=== PATIENT | male | born 1935 | race African-American/Black ===

== ENCOUNTER 2020-05-23 11:20 | Outpatient (CLI) | payer MEDICARE, BC | END 2020-05-23 11:21 | disposition home or self-care (01) | LOC: CSHWCC 11:20 | PROVIDERS: ATTEND Nurse Practitioner Family | DX: I87.311 Chronic venous hypertension (idiopathic) with ulcer of right lower extremity (principal); E11.622 Type 2 diabetes mellitus with other skin ulcer; L97.811 Non-pressure chronic ulcer of other part of right lower leg limited to breakdown of skin; R60.0 Localized edema; E11.40 Type 2 diabetes mellitus with diabetic neuropathy, unspecified; E78.2 Mixed hyperlipidemia; G90.09 Other idiopathic peripheral autonomic neuropathy; I11.0 Hypertensive heart disease with heart failure; I25.10 Atherosclerotic heart disease of native coronary artery without angina pectoris; I50.9 Heart failure, unspecified; E11.51 Type 2 diabetes mellitus with diabetic peripheral angiopathy without gangrene; I70.203 Unspecified atherosclerosis of native arteries of extremities, bilateral legs; M1A.9XX0 Chronic gout, unspecified, without tophus (tophi); Z74.01 Bed confinement status; Z91.81 History of falling | CPT/HCPCS: 29581; 97139; G0463; 99214 ==

== ENCOUNTER 2020-06-25 10:59 | Outpatient (CLI) | payer MEDICARE, BC | END 2020-06-25 11:00 | disposition home or self-care (01) | LOC: CSHWCC 10:59 | PROVIDERS: ATTEND Nurse Practitioner Family | DX: I87.311 Chronic venous hypertension (idiopathic) with ulcer of right lower extremity (principal); L97.811 Non-pressure chronic ulcer of other part of right lower leg limited to breakdown of skin; R60.0 Localized edema; E11.40 Type 2 diabetes mellitus with diabetic neuropathy, unspecified; E78.2 Mixed hyperlipidemia; G90.09 Other idiopathic peripheral autonomic neuropathy; I25.10 Atherosclerotic heart disease of native coronary artery without angina pectoris; I11.0 Hypertensive heart disease with heart failure; I50.9 Heart failure, unspecified; I70.203 Unspecified atherosclerosis of native arteries of extremities, bilateral legs; I87.2 Venous insufficiency (chronic) (peripheral); M1A.9XX0 Chronic gout, unspecified, without tophus (tophi); Z74.01 Bed confinement status; Z91.81 History of falling | CPT/HCPCS: 29581; 97139; G0463; 99213 ==

== ENCOUNTER 2020-07-02 11:18 | Outpatient (CLI) | payer MEDICARE, BC | END 2020-07-02 11:19 | disposition home or self-care (01) | LOC: CSHWCC 11:18 | PROVIDERS: ATTEND Nurse Practitioner Family | DX: I87.311 Chronic venous hypertension (idiopathic) with ulcer of right lower extremity (principal); L97.811 Non-pressure chronic ulcer of other part of right lower leg limited to breakdown of skin; R60.0 Localized edema; E11.40 Type 2 diabetes mellitus with diabetic neuropathy, unspecified; E78.2 Mixed hyperlipidemia; G90.09 Other idiopathic peripheral autonomic neuropathy; I25.10 Atherosclerotic heart disease of native coronary artery without angina pectoris; I11.0 Hypertensive heart disease with heart failure; I50.9 Heart failure, unspecified; I70.203 Unspecified atherosclerosis of native arteries of extremities, bilateral legs; I87.2 Venous insufficiency (chronic) (peripheral); M1A.9XX0 Chronic gout, unspecified, without tophus (tophi); Z74.01 Bed confinement status; Z91.81 History of falling | CPT/HCPCS: 29581; 97139; G0463; 99213 ==

== ENCOUNTER 2020-07-09 11:57 | Outpatient (CLI) | payer MEDICARE, BC | END 2020-07-09 11:58 | disposition home or self-care (01) | LOC: CSHWCC 11:57 | PROVIDERS: ATTEND Nurse Practitioner Family | DX: I87.311 Chronic venous hypertension (idiopathic) with ulcer of right lower extremity (principal); I87.2 Venous insufficiency (chronic) (peripheral); L97.819 Non-pressure chronic ulcer of other part of right lower leg with unspecified severity; L97.811 Non-pressure chronic ulcer of other part of right lower leg limited to breakdown of skin; R60.0 Localized edema; E11.40 Type 2 diabetes mellitus with diabetic neuropathy, unspecified; E78.2 Mixed hyperlipidemia; G90.09 Other idiopathic peripheral autonomic neuropathy; I25.10 Atherosclerotic heart disease of native coronary artery without angina pectoris; I11.0 Hypertensive heart disease with heart failure; I50.9 Heart failure, unspecified; I70.203 Unspecified atherosclerosis of native arteries of extremities, bilateral legs; M1A.9XX0 Chronic gout, unspecified, without tophus (tophi); Z74.01 Bed confinement status; Z91.81 History of falling | CPT/HCPCS: 17250; 29581; 99213; G0463 ==

== ENCOUNTER 2020-07-16 15:31 | Outpatient (CLI) | payer MEDICARE, BC | END 2020-07-16 15:32 | disposition home or self-care (01) | LOC: CSHWCC 15:31 | PROVIDERS: ATTEND Nurse Practitioner Family | DX: I87.311 Chronic venous hypertension (idiopathic) with ulcer of right lower extremity (principal); I87.2 Venous insufficiency (chronic) (peripheral); E11.622 Type 2 diabetes mellitus with other skin ulcer; L97.811 Non-pressure chronic ulcer of other part of right lower leg limited to breakdown of skin; E11.51 Type 2 diabetes mellitus with diabetic peripheral angiopathy without gangrene; I70.203 Unspecified atherosclerosis of native arteries of extremities, bilateral legs; R60.0 Localized edema; E11.40 Type 2 diabetes mellitus with diabetic neuropathy, unspecified; E78.2 Mixed hyperlipidemia; G90.09 Other idiopathic peripheral autonomic neuropathy; I25.10 Atherosclerotic heart disease of native coronary artery without angina pectoris; I11.0 Hypertensive heart disease with heart failure; I50.9 Heart failure, unspecified; M1A.9XX0 Chronic gout, unspecified, without tophus (tophi); Z74.01 Bed confinement status; Z91.81 History of falling | CPT/HCPCS: 29581; 99213; G0463 ==

== ENCOUNTER 2020-08-02 10:25 | Outpatient (CLI) | payer BC | END 2020-08-02 10:26 | disposition home or self-care (01) | LOC: CSHWCC 10:25 | PROVIDERS: ATTEND Nurse Practitioner Family | DX: I87.311 Chronic venous hypertension (idiopathic) with ulcer of right lower extremity (principal); I87.2 Venous insufficiency (chronic) (peripheral); E11.622 Type 2 diabetes mellitus with other skin ulcer; L97.819 Non-pressure chronic ulcer of other part of right lower leg with unspecified severity; L97.811 Non-pressure chronic ulcer of other part of right lower leg limited to breakdown of skin; E11.40 Type 2 diabetes mellitus with diabetic neuropathy, unspecified; I11.0 Hypertensive heart disease with heart failure; I50.9 Heart failure, unspecified; G90.09 Other idiopathic peripheral autonomic neuropathy; I25.10 Atherosclerotic heart disease of native coronary artery without angina pectoris; I70.203 Unspecified atherosclerosis of native arteries of extremities, bilateral legs; E78.2 Mixed hyperlipidemia; R60.0 Localized edema; M1A.9XX0 Chronic gout, unspecified, without tophus (tophi); Z74.01 Bed confinement status; Z91.81 History of falling | CPT/HCPCS: 17250; 29581; 99213; G0463 ==

== ENCOUNTER 2020-10-18 09:05 | Outpatient (CLI) | payer BC | END 2020-10-18 09:06 | disposition home or self-care (01) | LOC: CSHWCC 09:05 | PROVIDERS: ATTEND Nurse Practitioner Family | DX: I87.311 Chronic venous hypertension (idiopathic) with ulcer of right lower extremity (principal); L97.819 Non-pressure chronic ulcer of other part of right lower leg with unspecified severity; I87.2 Venous insufficiency (chronic) (peripheral); E11.40 Type 2 diabetes mellitus with diabetic neuropathy, unspecified; E78.2 Mixed hyperlipidemia; G90.09 Other idiopathic peripheral autonomic neuropathy; I11.0 Hypertensive heart disease with heart failure; I50.9 Heart failure, unspecified; I25.10 Atherosclerotic heart disease of native coronary artery without angina pectoris; I70.203 Unspecified atherosclerosis of native arteries of extremities, bilateral legs; L89.896 Pressure-induced deep tissue damage of other site; M1A.9XX0 Chronic gout, unspecified, without tophus (tophi); R60.0 Localized edema; Z74.01 Bed confinement status; Z91.81 History of falling | CPT/HCPCS: 29581; 87070; 87205; 99213; G0463 ==

== ENCOUNTER 2020-11-06 12:50 | Outpatient (CLI) | payer MEDICARE, BC | END 2020-11-06 12:51 | disposition home or self-care (01) | LOC: CSHWCC 12:50 | PROVIDERS: ATTEND Nurse Practitioner Family | DX: L89.896 Pressure-induced deep tissue damage of other site (principal); I87.311 Chronic venous hypertension (idiopathic) with ulcer of right lower extremity; I87.2 Venous insufficiency (chronic) (peripheral); E11.622 Type 2 diabetes mellitus with other skin ulcer; L97.819 Non-pressure chronic ulcer of other part of right lower leg with unspecified severity; E11.51 Type 2 diabetes mellitus with diabetic peripheral angiopathy without gangrene; R60.0 Localized edema; E11.40 Type 2 diabetes mellitus with diabetic neuropathy, unspecified; I11.0 Hypertensive heart disease with heart failure; I50.9 Heart failure, unspecified; I25.10 Atherosclerotic heart disease of native coronary artery without angina pectoris; I70.203 Unspecified atherosclerosis of native arteries of extremities, bilateral legs; E11.43 Type 2 diabetes mellitus with diabetic autonomic (poly)neuropathy; E78.2 Mixed hyperlipidemia; Z74.01 Bed confinement status; Z91.81 History of falling | CPT/HCPCS: 29581; 99213; G0463 ==

== ENCOUNTER 2020-12-18 09:12 | Outpatient (CLI) | payer MEDICARE, BC | END 2020-12-18 09:13 | disposition home or self-care (01) | LOC: CSHWCC 09:12 | PROVIDERS: ATTEND Nurse Practitioner Family | DX: I87.313 Chronic venous hypertension (idiopathic) with ulcer of bilateral lower extremity (principal); I87.2 Venous insufficiency (chronic) (peripheral); E11.622 Type 2 diabetes mellitus with other skin ulcer; L97.819 Non-pressure chronic ulcer of other part of right lower leg with unspecified severity; L97.829 Non-pressure chronic ulcer of other part of left lower leg with unspecified severity; R60.0 Localized edema; E11.40 Type 2 diabetes mellitus with diabetic neuropathy, unspecified; E78.2 Mixed hyperlipidemia; E11.43 Type 2 diabetes mellitus with diabetic autonomic (poly)neuropathy; I11.0 Hypertensive heart disease with heart failure; I50.9 Heart failure, unspecified; I25.10 Atherosclerotic heart disease of native coronary artery without angina pectoris; E11.51 Type 2 diabetes mellitus with diabetic peripheral angiopathy without gangrene; I70.203 Unspecified atherosclerosis of native arteries of extremities, bilateral legs; M1A.9XX0 Chronic gout, unspecified, without tophus (tophi); Z74.01 Bed confinement status; Z91.81 History of falling | CPT/HCPCS: 29581; 97139; G0463; 99213 ==

== ENCOUNTER 2020-12-21 09:22 | Outpatient (CLI) | payer MEDICARE, BC | END 2020-12-21 09:23 | disposition home or self-care (01) | LOC: CSHWCC 09:22 | PROVIDERS: ATTEND Nurse Practitioner Family | DX: I87.313 Chronic venous hypertension (idiopathic) with ulcer of bilateral lower extremity (principal); I87.2 Venous insufficiency (chronic) (peripheral); E11.622 Type 2 diabetes mellitus with other skin ulcer; L97.819 Non-pressure chronic ulcer of other part of right lower leg with unspecified severity; E11.40 Type 2 diabetes mellitus with diabetic neuropathy, unspecified; E11.43 Type 2 diabetes mellitus with diabetic autonomic (poly)neuropathy; E78.2 Mixed hyperlipidemia; I11.0 Hypertensive heart disease with heart failure; I50.9 Heart failure, unspecified; E11.51 Type 2 diabetes mellitus with diabetic peripheral angiopathy without gangrene; I70.203 Unspecified atherosclerosis of native arteries of extremities, bilateral legs; M1A.9XX0 Chronic gout, unspecified, without tophus (tophi); R60.0 Localized edema; Z74.01 Bed confinement status; Z91.81 History of falling | CPT/HCPCS: 29581; 97139; G0463; 99213 ==

== ENCOUNTER 2020-12-24 10:01 | Outpatient (CLI) | payer MEDICARE, BC | END 2020-12-24 10:02 | disposition home or self-care (01) | LOC: CSHWCC 10:01 | PROVIDERS: ATTEND Nurse Practitioner Family | DX: I87.312 Chronic venous hypertension (idiopathic) with ulcer of left lower extremity (principal); E11.40 Type 2 diabetes mellitus with diabetic neuropathy, unspecified; E78.2 Mixed hyperlipidemia; G90.09 Other idiopathic peripheral autonomic neuropathy; I11.0 Hypertensive heart disease with heart failure; I25.10 Atherosclerotic heart disease of native coronary artery without angina pectoris; I50.9 Heart failure, unspecified; I51.9 Heart disease, unspecified; I70.203 Unspecified atherosclerosis of native arteries of extremities, bilateral legs; I87.2 Venous insufficiency (chronic) (peripheral); L97.819 Non-pressure chronic ulcer of other part of right lower leg with unspecified severity; L97.829 Non-pressure chronic ulcer of other part of left lower leg with unspecified severity; I87.311 Chronic venous hypertension (idiopathic) with ulcer of right lower extremity; M1A.9XX0 Chronic gout, unspecified, without tophus (tophi); R60.0 Localized edema; Z74.01 Bed confinement status; Z91.81 History of falling | CPT/HCPCS: 29581; 97139; G0463; 99214 ==

== ENCOUNTER 2020-12-28 10:46 | Outpatient (CLI) | payer SELFPAY | END 2020-12-28 10:47 | disposition home or self-care (01) | LOC: CSHWCC 10:46 | PROVIDERS: ATTEND Nurse Practitioner Family | DX: I87.311 Chronic venous hypertension (idiopathic) with ulcer of right lower extremity (principal); I87.2 Venous insufficiency (chronic) (peripheral); E11.622 Type 2 diabetes mellitus with other skin ulcer; L97.812 Non-pressure chronic ulcer of other part of right lower leg with fat layer exposed; E11.51 Type 2 diabetes mellitus with diabetic peripheral angiopathy without gangrene; E11.40 Type 2 diabetes mellitus with diabetic neuropathy, unspecified; E78.2 Mixed hyperlipidemia; E11.43 Type 2 diabetes mellitus with diabetic autonomic (poly)neuropathy; I25.10 Atherosclerotic heart disease of native coronary artery without angina pectoris; I11.0 Hypertensive heart disease with heart failure; I50.9 Heart failure, unspecified; I70.203 Unspecified atherosclerosis of native arteries of extremities, bilateral legs; R60.0 Localized edema; M1A.9XX0 Chronic gout, unspecified, without tophus (tophi); Z74.01 Bed confinement status; Z91.81 History of falling | CPT/HCPCS: 29581; 99213; G0463 ==

== ENCOUNTER 2021-01-01 08:32 | Outpatient (CLI) | payer SELFPAY | END 2021-01-01 08:33 | disposition home or self-care (01) | LOC: CSHWCC 08:32 | PROVIDERS: ATTEND Nurse Practitioner Family | DX: I87.311 Chronic venous hypertension (idiopathic) with ulcer of right lower extremity (principal); L97.812 Non-pressure chronic ulcer of other part of right lower leg with fat layer exposed; R60.0 Localized edema; I70.203 Unspecified atherosclerosis of native arteries of extremities, bilateral legs; E11.40 Type 2 diabetes mellitus with diabetic neuropathy, unspecified; E78.2 Mixed hyperlipidemia; G90.09 Other idiopathic peripheral autonomic neuropathy; I25.10 Atherosclerotic heart disease of native coronary artery without angina pectoris; I11.0 Hypertensive heart disease with heart failure; I50.9 Heart failure, unspecified; I87.2 Venous insufficiency (chronic) (peripheral); M1A.9XX0 Chronic gout, unspecified, without tophus (tophi); Z74.01 Bed confinement status; Z91.81 History of falling | CPT/HCPCS: 29581; 99213; G0463 ==

== ENCOUNTER 2021-01-04 09:39 | Outpatient (CLI) | payer SELFPAY | END 2021-01-04 09:40 | disposition home or self-care (01) | LOC: CSHWCC 09:39 | PROVIDERS: ATTEND Nurse Practitioner Family | DX: I87.311 Chronic venous hypertension (idiopathic) with ulcer of right lower extremity (principal); L97.812 Non-pressure chronic ulcer of other part of right lower leg with fat layer exposed; R60.0 Localized edema; I70.203 Unspecified atherosclerosis of native arteries of extremities, bilateral legs; E11.40 Type 2 diabetes mellitus with diabetic neuropathy, unspecified; E78.2 Mixed hyperlipidemia; G90.09 Other idiopathic peripheral autonomic neuropathy; I25.10 Atherosclerotic heart disease of native coronary artery without angina pectoris; I11.0 Hypertensive heart disease with heart failure; I50.9 Heart failure, unspecified; I87.2 Venous insufficiency (chronic) (peripheral); M1A.9XX0 Chronic gout, unspecified, without tophus (tophi); Z74.01 Bed confinement status; Z91.81 History of falling | CPT/HCPCS: 29581; 99213; G0463 ==

== ENCOUNTER 2021-01-07 07:50 | Outpatient (CLI) | payer SELFPAY | END 2021-01-07 07:51 | disposition home or self-care (01) | LOC: CSHWCC 07:50 | PROVIDERS: ATTEND Nurse Practitioner Family | DX: I87.311 Chronic venous hypertension (idiopathic) with ulcer of right lower extremity (principal); I87.2 Venous insufficiency (chronic) (peripheral); E11.622 Type 2 diabetes mellitus with other skin ulcer; L97.812 Non-pressure chronic ulcer of other part of right lower leg with fat layer exposed; L97.819 Non-pressure chronic ulcer of other part of right lower leg with unspecified severity; E11.51 Type 2 diabetes mellitus with diabetic peripheral angiopathy without gangrene; I70.203 Unspecified atherosclerosis of native arteries of extremities, bilateral legs; E11.40 Type 2 diabetes mellitus with diabetic neuropathy, unspecified; E78.2 Mixed hyperlipidemia; E11.43 Type 2 diabetes mellitus with diabetic autonomic (poly)neuropathy; I11.0 Hypertensive heart disease with heart failure; I50.9 Heart failure, unspecified; R60.0 Localized edema; M1A.9XX0 Chronic gout, unspecified, without tophus (tophi); Z74.01 Bed confinement status; Z91.81 History of falling | CPT/HCPCS: 29581; 99214; G0463 ==

== ENCOUNTER 2021-01-11 09:55 | Outpatient (CLI) | payer MEDICARE, BC | END 2021-01-11 09:56 | disposition home or self-care (01) | LOC: CSHWCC 09:55 | PROVIDERS: ATTEND Nurse Practitioner Family | DX: I87.313 Chronic venous hypertension (idiopathic) with ulcer of bilateral lower extremity (principal); I87.2 Venous insufficiency (chronic) (peripheral); E11.622 Type 2 diabetes mellitus with other skin ulcer; L97.812 Non-pressure chronic ulcer of other part of right lower leg with fat layer exposed; L97.822 Non-pressure chronic ulcer of other part of left lower leg with fat layer exposed; E11.40 Type 2 diabetes mellitus with diabetic neuropathy, unspecified; I70.203 Unspecified atherosclerosis of native arteries of extremities, bilateral legs; R60.0 Localized edema; E11.43 Type 2 diabetes mellitus with diabetic autonomic (poly)neuropathy; E11.51 Type 2 diabetes mellitus with diabetic peripheral angiopathy without gangrene; I11.0 Hypertensive heart disease with heart failure; I50.9 Heart failure, unspecified; I25.10 Atherosclerotic heart disease of native coronary artery without angina pectoris; E78.2 Mixed hyperlipidemia; M1A.9XX0 Chronic gout, unspecified, without tophus (tophi); Z74.01 Bed confinement status; Z91.81 History of falling | CPT/HCPCS: 29581; 99213; G0463 ==

== ENCOUNTER 2021-01-14 08:39 | Outpatient (CLI) | payer MEDICARE, BC | END 2021-01-14 08:40 | disposition home or self-care (01) | LOC: CSHWCC 08:39 | PROVIDERS: ATTEND Nurse Practitioner Family | DX: I87.313 Chronic venous hypertension (idiopathic) with ulcer of bilateral lower extremity (principal); I87.2 Venous insufficiency (chronic) (peripheral); E11.622 Type 2 diabetes mellitus with other skin ulcer; L97.812 Non-pressure chronic ulcer of other part of right lower leg with fat layer exposed; L97.822 Non-pressure chronic ulcer of other part of left lower leg with fat layer exposed; E78.2 Mixed hyperlipidemia; E11.40 Type 2 diabetes mellitus with diabetic neuropathy, unspecified; E11.43 Type 2 diabetes mellitus with diabetic autonomic (poly)neuropathy; I11.0 Hypertensive heart disease with heart failure; I50.9 Heart failure, unspecified; I25.10 Atherosclerotic heart disease of native coronary artery without angina pectoris; E11.51 Type 2 diabetes mellitus with diabetic peripheral angiopathy without gangrene; I70.203 Unspecified atherosclerosis of native arteries of extremities, bilateral legs; M1A.9XX0 Chronic gout, unspecified, without tophus (tophi); R60.0 Localized edema; Z74.01 Bed confinement status; Z91.81 History of falling | CPT/HCPCS: 99213; G0463 ==

== ENCOUNTER 2021-01-14 11:09 | Inpatient (IN) | payer MEDICARE ==
[2021-01-14 13:16] LABS: #Monocytes 0.8 10x3/uL (0.0-1.1); #Neutrophils 9.3 10x3/uL (1.5-8.4); %Basophils 0.3 % (0.0-2.0); %Eosinophils 0.1 % (0.0-6.0); %Monocytes 6.6 % (0.0-10.0); %Neutrophils 75.5 % (40.0-75.0); Hemoglobin 9.2 g/dL (13.5-17.5); Mean Corpuscular HGB CONC 30.3 g/dL (32.0-36.0); Mean Corpuscular Hemoglobin 29.6 pg (27.0-33.0); Mean Corpuscular Volume 97.7 fl (81.2-95.1); Platelet Count 298 10x3/uL (150-450); RBC Distribution Width 15.9 % (11.5-14.5); Red Blood Cell (RBC) Count 3.11 10x6/uL (4.32-5.72); White Blood Cell (WBC) Count 12.3 10x3/uL (3.5-10.5)
[2021-01-14 13:32] LABS: ALT (SGPT) 39 U/L (8-55); AST (SGOT) 91 U/L (5-34); Albumin 3.5 g/dL (3.4-4.8); Alkaline Phosphatase 102 U/L (40-110); Anion Gap 16 mmol/L (10-20); BUN (Urea Nitrogen) 31 mg/dL (8.4-25.7); Bilirubin, Total 0.5 mg/dL (0.2-1.2); Calc. Creatinine Clearance 0 mL/min (70-130); Calcium 10.1 mg/dL (7.8-10.44); Carbon Dioxide 22 mmol/L (23-31); Chloride 108 mmol/L (98-107); Globulin 3.3 g/dL (2.4-3.5); Glucose 248 mg/dL (83-110); Potassium 4.9 mmol/L (3.5-5.1); Protein, Total 6.8 g/dL (5.8-8.1); Sodium 141 mmol/L (136-145)
[2021-01-14 13:41] LABS: Critical Call Chem Troponin I 0
[2021-01-14] MEDS ORDERED: Aspirin 325 MG TAB ONE (13:53)
[2021-01-14 14:02] LABS: CKMB 54.3 ng/mL (0-6.6)
[2021-01-14] MEDS ORDERED: Heparin 5,000 UNITS/ML VIAL ONE (14:07)
[2021-01-14] MEDS ORDERED: Heparin 25,000 units/D5W 500 ML ONE ×2 (14:12→14:13)
[2021-01-14 14:17] LABS: PTT 25.1 sec (22.0-33.0); Prothrombin Time 11.5 sec (9.5-12.1)
[2021-01-14] MEDS ORDERED: Dextrose 50% Abboject 50 ML SYRINGE SLOW IVP PRN (15:04)
[2021-01-14] MEDS ORDERED: Dextrose 5% in Water 1,000 ML IV PRN (15:04)
[2021-01-14 20:54] LABS: SARS-CoV-2 NAA Rapid Test Not Detected (NotDetected)
[2021-01-14] MEDS: Metoprolol Tartrate 25 MG TAB PO SCH (20:57)
[2021-01-14] MEDS: Atorvastatin Calcium 40 MG TAB PO SCH (20:57)
[2021-01-14] MEDS ORDERED: Clopidogrel Bisulfate 75 MG TAB PO SCH (21:45)
[2021-01-15] MEDS ORDERED: Acetaminophen 325 MG TAB PO PRN (00:52)
[2021-01-15] MEDS: Cefepime 2 GM in Sodium Chloride 0.9% 100 ML IVPB SCH ×3 (01:37→16:36)
[2021-01-15 01:53] LABS: #Monocytes 0.8 10x3/uL (0.0-1.1); #Neutrophils 10.3 10x3/uL (1.5-8.4); %Basophils 0.3 % (0.0-2.0); %Eosinophils 0.1 % (0.0-6.0); %Lymphocytes 10.3 % (18.0-47.0); %Monocytes 6.5 % (0.0-10.0); %Neutrophils 82.4 % (40.0-75.0); Hemoglobin 9.1 g/dL (13.5-17.5); Mean Corpuscular HGB CONC 30.2 g/dL (32.0-36.0); Mean Corpuscular Hemoglobin 29.2 pg (27.0-33.0); Mean Corpuscular Volume 96.5 fl (81.2-95.1); Mean Platelet Volume 9.9 fl (7.4-10.4); Platelet Count 319 10x3/uL (150-450); RBC Distribution Width 16.1 % (11.5-14.5); Red Blood Cell (RBC) Count 3.12 10x6/uL (4.32-5.72); White Blood Cell (WBC) Count 12.5 10x3/uL (3.5-10.5)
[2021-01-15 02:00] LABS: ALT (SGPT) 37 U/L (8-55); AST (SGOT) 76 U/L (5-34); Albumin 3.2 g/dL (3.4-4.8); Alkaline Phosphatase 97 U/L (40-110); Anion Gap 15 mmol/L (10-20); BUN (Urea Nitrogen) 31 mg/dL (8.4-25.7); Bilirubin, Total 0.9 mg/dL (0.2-1.2); Calc. Creatinine Clearance 46 mL/min (70-130); Calcium 10.3 mg/dL (7.8-10.44); Carbon Dioxide 22 mmol/L (23-31); Chloride 110 mmol/L (98-107); Globulin 3.9 g/dL (2.4-3.5); Glucose 167 mg/dL (83-110); Potassium 5.2 mmol/L (3.5-5.1); Protein, Total 7.1 g/dL (5.8-8.1); Sodium 142 mmol/L (136-145)
[2021-01-15] MEDS ORDERED: VANCOMYCIN 2 GRAM/400 ML BAG 2 GM in Premix Bag 1 BAG IVPB SCH (04:00)
[2021-01-15 04:52] LABS: Cardiac Risk 2.6 (Less than 4.5); Cholesterol 79 mg/dl (< 200 Desired); HDL Cholesterol 30 mg/dL (>60 Neg Risk); LDL Cholesterol, Calculated 37 mg/dL; Magnesium 2.1 mg/dL (1.6-2.6); Triglycerides 59 mg/dL (Less than 150)
[2021-01-15] MEDS: Metoprolol Tartrate 25 MG TAB PO SCH ×2 (08:51→18:27)
[2021-01-15] MEDS: Aspirin 81 mg Enteric Coated Tablet PO SCH (08:51)
[2021-01-15] MEDS ORDERED: Furosemide 20 MG/2 ML VIAL SLOW IVP SCH (11:00)
[2021-01-15 12:00] LABS: Hemoglobin A1c 7.1 % (4.0-6.0)
[2021-01-15 13:33] LABS: SARS-CoV-2 PCR by NAA Not Detected (NotDetected)
[2021-01-15 14:25] LABS: CKMB 16.2 ng/mL (0-6.6)
[2021-01-15] MEDS ORDERED: Nitroglycerin 50 MG/250 ML BOT 0 ML ONE (15:21)
[2021-01-15] MEDS ORDERED: Heparin 10,000 UNITS/ 10 ML VIAL ONE ×2 (15:21→15:47)
[2021-01-15] MEDS ORDERED: Adenosine 6 MG/2 ML VIAL ONE ×2 (15:22→15:47)
[2021-01-15] MEDS ORDERED: Fentanyl 100 MCG/2 ML VIAL ONE (15:23)
[2021-01-15] MEDS ORDERED: Lidocaine 1% PF 5 ML VIAL ONE ×2 (15:23→15:47)
[2021-01-15] MEDS ORDERED: Midazolam HCl 2 mg/2 ml Vial ONE (15:23)
[2021-01-15] MEDS ORDERED: Nitroglycerin 50 MG/250 ML BOT 250 ML ONE (15:47)
[2021-01-15] MEDS ORDERED: Acetaminophen/Codeine 30-300mg Tablet PO PRN ×2 (17:23)
[2021-01-15] MEDS ORDERED: Nitroglycerin 0.4 MG TAB (25 Tab Bottle) SL PRN (17:23)
[2021-01-15] MEDS ORDERED: Sodium Chloride 0.9% 250 ML 200 ML IV PRN (17:29)
[2021-01-15] MEDS ORDERED: Sodium Chloride 0.9% 1,000 ML IV SCH (17:30)
[2021-01-15] MEDS ORDERED: Clopidogrel Bisulfate 300 MG TAB ONE (17:35)
[2021-01-15] MEDS: Lisinopril 5 MG TAB PO SCH (18:27)
[2021-01-15] MEDS ORDERED: Furosemide 40 MG/4 ML VIAL SLOW IVP SCH ×2 (19:00→20:00)
[2021-01-15] MEDS ORDERED: Lisinopril 5 MG TAB PO SCH (19:00)
[2021-01-15] MEDS ORDERED: Nitroglycerin 2% Ointment 1 INCH/1 GM Packet TOP SCH (20:00)
[2021-01-15] MEDS: Clopidogrel Bisulfate 75 MG TAB PO SCH (20:59)
[2021-01-15] MEDS: Atorvastatin Calcium 40 MG TAB PO SCH (20:59)
[2021-01-15] MEDS: HumaLOG 300 UNITS/3 ML VIAL SC PRN (21:28)
[2021-01-15 21:36] LABS: Anion Gap 16 mmol/L (10-20); BUN (Urea Nitrogen) 41 mg/dL (8.4-25.7); Calc. Creatinine Clearance 42 mL/min (70-130); Calcium 10.2 mg/dL (7.8-10.44); Carbon Dioxide 21 mmol/L (23-31); Chloride 108 mmol/L (98-107); Glucose 232 mg/dL (83-110); Potassium 5.1 mmol/L (3.5-5.1); Sodium 140 mmol/L (136-145)
[2021-01-15 21:38] LABS: Bilirubin Neg (Negative); Blood, Urine 250 (Negative); Clarity Cloudy (Clear); Glucose, Urine (Dipstick) Normal (Negative); Ketone, Urine Negative (Negative); Leukocyte 500 (Negative); Nitrite Negative (Negative); Protein, Urine (Dipstick) 15 mg/dl (Neg-Trace); Urobilinogen Normal mg/dL (Less than 2)
[2021-01-15 21:50] LABS: Bacteria/HPF Rare-Few HPF (None Seen); Mucous/LPF None Seen LPF (<2+); RBC/HPF Greater than 50 HPF (0-3); Squamous Epithelial 0-3 HPF (0-3); WBC/HPF 21-50 HPF (0-3)
[2021-01-16] MEDS: Cefepime 2 GM in Sodium Chloride 0.9% 100 ML IVPB SCH ×3 (02:11→16:46)
[2021-01-16] MEDS ORDERED: Docusate 100 MG CAP PO SCH (02:30)
[2021-01-16] MEDS: VANCOMYCIN 1.25 GM/250 ML BAG 1.25 GM in Premix Bag 1 BAG IVPB SCH (04:37)
[2021-01-16 05:31] LABS: Anion Gap 17 mmol/L (10-20); BUN (Urea Nitrogen) 45 mg/dL (8.4-25.7); Calc. Creatinine Clearance 41 mL/min (70-130); Calcium 10.2 mg/dL (7.8-10.44); Carbon Dioxide 21 mmol/L (23-31); Chloride 111 mmol/L (98-107); Glucose 223 mg/dL (83-110); Potassium 4.6 mmol/L (3.5-5.1); Sodium 144 mmol/L (136-145)
[2021-01-16 05:32] LABS: #Monocytes 0.8 10x3/uL (0.0-1.1); #Neutrophils 11.4 10x3/uL (1.5-8.4); %Basophils 0.2 % (0.0-2.0); %Lymphocytes 5.8 % (18.0-47.0); %Monocytes 6.1 % (0.0-10.0); %Neutrophils 87.4 % (40.0-75.0); Mean Corpuscular HGB CONC 30.4 g/dL (32.0-36.0); Mean Corpuscular Hemoglobin 29.6 pg (27.0-33.0); Mean Corpuscular Volume 97.4 fl (81.2-95.1); Mean Platelet Volume 10.3 fl (7.4-10.4); Platelet Count 311 10x3/uL (150-450); Red Blood Cell (RBC) Count 3.04 10x6/uL (4.32-5.72)
[2021-01-16] MEDS: Furosemide 40 MG/4 ML VIAL SLOW IVP SCH ×2 (06:06→15:00)
[2021-01-16] MEDS: HumaLOG 300 UNITS/3 ML VIAL SC PRN ×3 (06:06→20:27)
[2021-01-16] MEDS ORDERED: Furosemide 20 MG/2 ML VIAL SLOW IVP SCH (09:00)
[2021-01-16] MEDS: Aspirin 81 mg Enteric Coated Tablet PO SCH (09:35)
[2021-01-16] MEDS: Lisinopril 5 MG TAB PO SCH (09:35)
[2021-01-16] MEDS: Metoprolol Tartrate 25 MG TAB PO SCH ×2 (09:36→20:09)
[2021-01-16] MEDS: Docusate 100 MG CAP PO SCH ×2 (09:36→20:09)
[2021-01-16] MEDS: Atorvastatin Calcium 40 MG TAB PO SCH (20:09)
[2021-01-16] MEDS: Clopidogrel Bisulfate 75 MG TAB PO SCH (20:09)
[2021-01-16] MEDS ORDERED: Lantus 1000 UNITS/10 ML VIAL SC SCH (21:00)
[2021-01-17 03:53] LABS: Vancomycin, Trough 23.1 ug/mL
[2021-01-17 03:54] LABS: #Monocytes 1.1 10x3/uL (0.0-1.1); %Basophils 0.3 % (0.0-2.0); %Eosinophils 0.1 % (0.0-6.0); %Lymphocytes 10.6 % (18.0-47.0); %Monocytes 7.1 % (0.0-10.0); %Neutrophils 81.4 % (40.0-75.0); Anion Gap 19 mmol/L (10-20); BUN (Urea Nitrogen) 61 mg/dL (8.4-25.7); Calc. Creatinine Clearance 34 mL/min (70-130); Calcium 9.9 mg/dL (7.8-10.44); Carbon Dioxide 19 mmol/L (23-31); Chloride 112 mmol/L (98-107); Glucose 264 mg/dL (83-110); Hemoglobin 9.7 g/dL (13.5-17.5); Mean Corpuscular Hemoglobin 28.9 pg (27.0-33.0); Mean Corpuscular Volume 96.1 fl (81.2-95.1); Platelet Count 323 10x3/uL (150-450); Potassium 4.5 mmol/L (3.5-5.1); RBC Distribution Width 16.1 % (11.5-14.5); Red Blood Cell (RBC) Count 3.36 10x6/uL (4.32-5.72); Sodium 145 mmol/L (136-145)
[2021-01-17] MEDS: Cefepime 2 GM in Sodium Chloride 0.9% 100 ML IVPB SCH ×2 (04:33→15:55)
[2021-01-17] MEDS: VANCOMYCIN 1.25 GM/250 ML BAG 1.25 GM in Premix Bag 1 BAG IVPB SCH (04:37)
[2021-01-17] MEDS: Furosemide 40 MG/4 ML VIAL SLOW IVP SCH (05:44)
[2021-01-17] MEDS: HumaLOG 300 UNITS/3 ML VIAL SC PRN ×2 (05:44→20:40)
[2021-01-17] MEDS ORDERED: REMDESIVIR 200 MG in Sodium Chloride 0.9% 250 ML 210 ML IV SCH (09:00)
[2021-01-17] MEDS: Metoprolol Tartrate 25 MG TAB PO SCH ×2 (09:42→20:39)
[2021-01-17] MEDS: Lisinopril 5 MG TAB PO SCH (09:42)
[2021-01-17] MEDS: Aspirin 81 mg Enteric Coated Tablet PO SCH (09:43)
[2021-01-17] MEDS: Docusate 100 MG CAP PO SCH ×2 (09:43→20:40)
[2021-01-17] MEDS ORDERED: Isosorbide Dinitrate 20 MG TAB PO SCH (11:00)
[2021-01-17] MEDS ORDERED: Isosorbide Dinitrate 10 MG TAB PO SCH (11:30)
[2021-01-17 14:37] LABS: Vancomycin, Random 17.5 ug/mL (See Comment)
[2021-01-17] MEDS: Furosemide 40 MG TAB PO SCH (15:54)
[2021-01-17] MEDS ORDERED: VANCOMYCIN 1.25 GM/250 ML BAG 1.25 GM in Premix Bag 1 BAG IVPB SCH (16:00)
[2021-01-17] MEDS: Clopidogrel Bisulfate 75 MG TAB PO SCH (20:40)
[2021-01-17] MEDS: Lantus 1000 UNITS/10 ML VIAL SC SCH (20:40)
[2021-01-17] MEDS: Atorvastatin Calcium 40 MG TAB PO SCH (20:40)
[2021-01-17 20:43] LABS: Bilirubin Neg (Negative); Blood, Urine 250 (Negative); Clarity Slightly Cloudy (Clear); Glucose, Urine (Dipstick) Normal (Negative); Ketone, Urine Negative (Negative); Leukocyte 500 (Negative); Nitrite Negative (Negative); Protein, Urine (Dipstick) 100 mg/dl (Neg-Trace); Urine Culture Reflex No No; Urobilinogen Normal mg/dL (Less than 2)
[2021-01-17 20:52] LABS: Bacteria/HPF 3+ HPF (None Seen); RBC/HPF 21-50 HPF (0-3); Squamous Epithelial 0-3 HPF (0-3); Transitional Epithelial 0-3 HPF (None Seen)
[2021-01-17] MEDS: Isosorbide Dinitrate 20 MG TAB PO SCH (20:55)
[2021-01-17] MEDS ORDERED: Vancomycin 1.5 GRAM/300 ML BAG 1.5 GM in Premix Bag 1 BAG IVPB SCH (21:00)
[2021-01-18] MEDS: Cefepime 2 GM in Sodium Chloride 0.9% 100 ML IVPB SCH ×2 (04:34→19:18)
[2021-01-18] MEDS: HumaLOG 300 UNITS/3 ML VIAL SC PRN ×2 (04:50→16:15)
[2021-01-18 08:22] LABS: #Basophils 0.1 10x3/uL (0.0-0.2); #Monocytes 1.1 10x3/uL (0.0-1.1); #Neutrophils 13.6 10x3/uL (1.5-8.4); %Basophils 0.3 % (0.0-2.0); %Eosinophils 0.2 % (0.0-6.0); %Lymphocytes 7.4 % (18.0-47.0); %Monocytes 7.1 % (0.0-10.0); %Neutrophils 84.4 % (40.0-75.0); Hemoglobin 9.5 g/dL (13.5-17.5); Mean Corpuscular HGB CONC 30.3 g/dL (32.0-36.0); Mean Corpuscular Hemoglobin 30.2 pg (27.0-33.0); Mean Corpuscular Volume 99.7 fl (81.2-95.1); Mean Platelet Volume 10.4 fl (7.4-10.4); Platelet Count 234 10x3/uL (150-450); RBC Distribution Width 16.2 % (11.5-14.5); Red Blood Cell (RBC) Count 3.15 10x6/uL (4.32-5.72); White Blood Cell (WBC) Count 16.1 10x3/uL (3.5-10.5)
[2021-01-18 08:31] LABS: Anion Gap 16 mmol/L (10-20); BUN (Urea Nitrogen) 75 mg/dL (8.4-25.7); Calc. Creatinine Clearance 27 mL/min (70-130); Calcium 9.6 mg/dL (7.8-10.44); Carbon Dioxide 17 mmol/L (23-31); Chloride 115 mmol/L (98-107); Glucose 191 mg/dL (83-110); Potassium 5.2 mmol/L (3.5-5.1); Sodium 143 mmol/L (136-145)
[2021-01-18] MEDS ORDERED: REMDESIVIR 100 MG in Sodium Chloride 0.9% 250 ML 230 ML IV SCH (09:00)
[2021-01-18] MEDS: Docusate 100 MG CAP PO SCH ×2 (09:07→23:10)
[2021-01-18] MEDS: Aspirin 81 mg Enteric Coated Tablet PO SCH (09:07)
[2021-01-18] MEDS: Metoprolol Tartrate 25 MG TAB PO SCH ×2 (09:07→23:42)
[2021-01-18] MEDS: Furosemide 40 MG TAB PO SCH ×2 (09:07→13:40)
[2021-01-18] MEDS: Lisinopril 5 MG TAB PO SCH (09:07)
[2021-01-18] MEDS: Isosorbide Dinitrate 20 MG TAB PO SCH ×2 (09:08→23:42)
[2021-01-18] MEDS ORDERED: Furosemide 40 MG/4 ML VIAL SLOW IVP SCH (10:15)
[2021-01-18] MEDS: DOBUTamine 500 mg/250 ml 250 ML IVPB SCH (11:56)
[2021-01-18] MEDS ORDERED: Metolazone 2.5 MG TAB PO SCH (14:30)
[2021-01-18] MEDS ORDERED: Furosemide 20 MG/2 ML VIAL SLOW IVP SCH (14:30)
[2021-01-18 15:03] LABS: Anion Gap 17 mmol/L (10-20); BUN (Urea Nitrogen) 83 mg/dL (8.4-25.7); Calc. Creatinine Clearance 25 mL/min (70-130); Calcium 9.6 mg/dL (7.8-10.44); Carbon Dioxide 20 mmol/L (23-31); Chloride 115 mmol/L (98-107); Glucose 217 mg/dL (83-110); Sodium 147 mmol/L (136-145)
[2021-01-18] MEDS ORDERED: VANCOMYCIN 1.25 GM/250 ML BAG 1.25 GM in Premix Bag 1 BAG IVPB SCH (17:15)
[2021-01-18] MEDS: Lantus 1000 UNITS/10 ML VIAL SC SCH (22:00)
[2021-01-18] MEDS: Atorvastatin Calcium 40 MG TAB PO SCH (23:10)
[2021-01-19 04:17] LABS: #Eosinphils 0.1 10x3/uL (0.0-0.5); #Monocytes 0.9 10x3/uL (0.0-1.1); #Neutrophils 11.1 10x3/uL (1.5-8.4); %Basophils 0.2 % (0.0-2.0); %Lymphocytes 8.1 % (18.0-47.0); %Monocytes 6.5 % (0.0-10.0); %Neutrophils 83.6 % (40.0-75.0); Hemoglobin 9.1 g/dL (13.5-17.5); Mean Corpuscular HGB CONC 30.1 g/dL (32.0-36.0); Mean Corpuscular Hemoglobin 29.2 pg (27.0-33.0); Mean Corpuscular Volume 96.8 fl (81.2-95.1); Mean Platelet Volume 10.4 fl (7.4-10.4); Platelet Count 275 10x3/uL (150-450); Red Blood Cell (RBC) Count 3.12 10x6/uL (4.32-5.72); White Blood Cell (WBC) Count 13.3 10x3/uL (3.5-10.5)
[2021-01-19 04:19] LABS: Vancomycin, Trough 28.4 ug/mL
[2021-01-19 04:21] LABS: Anion Gap 16 mmol/L (10-20); BUN (Urea Nitrogen) 88 mg/dL (8.4-25.7); Calc. Creatinine Clearance 24 mL/min (70-130); Calcium 9.6 mg/dL (7.8-10.44); Carbon Dioxide 19 mmol/L (23-31); Chloride 116 mmol/L (98-107); Glucose 186 mg/dL (83-110); Potassium 4.5 mmol/L (3.5-5.1); Sodium 146 mmol/L (136-145)
[2021-01-19] MEDS ORDERED: Cefepime 1 GM in Sodium Chloride 0.9% 100 ML IVPB SCH (05:00)
[2021-01-19] MEDS: Clopidogrel Bisulfate 75 MG TAB PO SCH (06:33)
[2021-01-19] MEDS ORDERED: VANCOMYCIN 1.25 GM/250 ML BAG 1.25 GM in Premix Bag 1 BAG IVPB SCH (07:45)
[2021-01-19] MEDS: Lisinopril 5 MG TAB PO SCH (08:22)
[2021-01-19] MEDS: Docusate 100 MG CAP PO SCH ×2 (08:23→20:32)
[2021-01-19] MEDS: Metoprolol Tartrate 25 MG TAB PO SCH (08:23)
[2021-01-19] MEDS: Aspirin 81 mg Enteric Coated Tablet PO SCH (08:23)
[2021-01-19] MEDS: Furosemide 40 MG TAB PO SCH (08:24)
[2021-01-19] MEDS: HumaLOG 300 UNITS/3 ML VIAL SC PRN ×2 (08:38→16:45)
[2021-01-19] MEDS ORDERED: Clopidogrel Bisulfate 75 MG TAB PER TUBE SCH (08:59)
[2021-01-19 09:06] LABS: Base Excess (BEa) -1.9 mEq/L (-2.0 to +3.0); CO2 Tension 45.8 mmHg (35.0-45.0); Calcium, Ionized (arterial) 1.27 mmol/L (1.12-1.30); Critical Notified Whom: rt/ RN IN ICU AND FLOOR; Hemoglobin (Hb) 9.8 g/dL (14.0-18.0); O2 Tension (PaO2), arterial 61.8 mmHg (> 60.0); Potassium - ABG Lab 4.3 mmol/L (3.70-5.30); Puncture Site LRA; pH, Arterial 7.34 (7.35-7.45)
[2021-01-19 10:01] LABS: Anion Gap 17 mmol/L (10-20); BUN (Urea Nitrogen) 88 mg/dL (8.4-25.7); Calc. Creatinine Clearance 24 mL/min (70-130); Calcium 9.7 mg/dL (7.8-10.44); Carbon Dioxide 18 mmol/L (23-31); Chloride 116 mmol/L (98-107); Glucose 191 mg/dL (83-110); Sodium 146 mmol/L (136-145)
[2021-01-19] MEDS: Isosorbide Dinitrate 20 MG TAB PO SCH ×2 (10:05→20:32)
[2021-01-19 10:06] LABS: Potassium 4.7 mmol/L (3.5-5.1)
[2021-01-19] MEDS ORDERED: Furosemide 40 MG/4 ML VIAL SLOW IVP SCH (10:45)
[2021-01-19] MEDS: Furosemide 100 MG in Sodium Chloride 0.9% 90 ML IVPB SCH (11:38)
[2021-01-19 12:19] LABS: Actual Bicarbonate (HCO3a) 23.4 mEq/L (22-28); Base Excess (BEa) -1.3 mEq/L (-2.0 to +3.0); CO2 Tension 39.2 mmHg (35.0-45.0); Calcium, Ionized (arterial) 1.29 mmol/L (1.12-1.30); Carboxyhemoglobin (COHb) 0.6 gm% (0.0-3.0); Hemoglobin (Hb) 9.4 g/dL (14.0-18.0); O2 Tension (PaO2), arterial 70.4 mmHg (> 60.0); Puncture Site RBA; pH, Arterial 7.39 (7.35-7.45)
[2021-01-19] MEDS ORDERED: Furosemide 100 MG/10 ML VIAL SLOW IVP SCH (14:00)
[2021-01-19] MEDS: DOBUTamine 500 mg/250 ml 250 ML IVPB SCH (17:57)
[2021-01-19] MEDS: Atorvastatin Calcium 40 MG TAB PO SCH (20:32)
[2021-01-19] MEDS: Lantus 1000 UNITS/10 ML VIAL SC SCH (20:33)
[2021-01-20] MEDS: Furosemide 100 MG in Sodium Chloride 0.9% 90 ML IVPB SCH (05:10)
[2021-01-20] MEDS ORDERED: Rocuronium Bromide 10 MG/ML (10ML VIAL) ONE (07:00)
[2021-01-20] MEDS ORDERED: Norepinephrine 8 MG/0.9% NS 250 ML ONE (07:13)
[2021-01-20] MEDS: Propofol 1,000 MG/100 ML VIAL IV ONE ×2 (07:30→08:15)
[2021-01-20 07:58] LABS: #Monocytes 0.8 10x3/uL (0.0-1.1); #Neutrophils 12.9 10x3/uL (1.5-8.4); %Basophils 0.2 % (0.0-2.0); %Eosinophils 0.1 % (0.0-6.0); %Monocytes 5.4 % (0.0-10.0); %Neutrophils 89.7 % (40.0-75.0); Hemoglobin 8.2 g/dL (13.5-17.5); Mean Corpuscular HGB CONC 30.5 g/dL (32.0-36.0); Mean Corpuscular Hemoglobin 29.3 pg (27.0-33.0); Mean Corpuscular Volume 96.1 fl (81.2-95.1); Mean Platelet Volume 10.2 fl (7.4-10.4); Platelet Count 283 10x3/uL (150-450); RBC Distribution Width 16.1 % (11.5-14.5); White Blood Cell (WBC) Count 14.4 10x3/uL (3.5-10.5)
[2021-01-20 08:08] LABS: ALT (SGPT) 22 U/L (8-55); AST (SGOT) 24 U/L (5-34); Albumin 2.6 g/dL (3.4-4.8); Alkaline Phosphatase 77 U/L (40-110); Anion Gap 17 mmol/L (10-20); BUN (Urea Nitrogen) 96 mg/dL (8.4-25.7); Bilirubin, Total 0.6 mg/dL (0.2-1.2); Calc. Creatinine Clearance 22 mL/min (70-130); Calcium 9.1 mg/dL (7.8-10.44); Carbon Dioxide 21 mmol/L (23-31); Chloride 115 mmol/L (98-107); Globulin 3.4 g/dL (2.4-3.5); Glucose 242 mg/dL (83-110); Sodium 149 mmol/L (136-145)
[2021-01-20 08:26] LABS: Actual Bicarbonate (HCO3a) 23.7 mEq/L (22-28); Base Excess (BEa) -0.9 mEq/L (-2.0 to +3.0); CO2 Tension 38.7 mmHg (35.0-45.0); Calcium, Ionized (arterial) 1.24 mmol/L (1.12-1.30); Carboxyhemoglobin (COHb) 0.3 gm% (0.0-3.0); Hemoglobin (Hb) 9.2 g/dL (14.0-18.0); O2 Tension (PaO2), arterial 195.9 mmHg (> 60.0); Puncture Site RBA; pH, Arterial 7.41 (7.35-7.45)
[2021-01-20 08:31] LABS: ALV-art Gradient 468.725 mmHg (0-20)
[2021-01-20] MEDS: Aspirin 81 mg Enteric Coated Tablet PO SCH (08:38)
[2021-01-20] MEDS: Pantoprazole 40 MG VIAL IVP SCH (08:41)
[2021-01-20] MEDS ORDERED: Meropenem 1 GM in Sodium Chloride 0.9% 100 ML IVPB SCH (09:00)
[2021-01-20] MEDS ORDERED: Cefepime 1 GM in Sodium Chloride 0.9% 100 ML IVPB SCH (09:00)
[2021-01-20 09:03] LABS: CRP (Inflammatory) 10.15 mg/dL (= or < 0.5); Magnesium 2.6 mg/dL (1.6-2.6)
[2021-01-20] MEDS: DOBUTamine 500 mg/250 ml 250 ML IVPB SCH (09:09)
[2021-01-20] MEDS: Docusate 100 MG CAP PO SCH ×2 (09:26→20:32)
[2021-01-20] MEDS ORDERED: Metoprolol Tartrate 25 MG TAB PO SCH (10:00)
[2021-01-20 10:05] LABS: D-Dimer Test 4.28 mg/L FEU (0.19-0.50); INR-International Normal Ratio 1.1; PTT 24.2 sec (22.0-33.0); Prothrombin Time 12.5 sec (9.5-12.1)
[2021-01-20 10:22] LABS: CKMB 5.8 ng/mL (0-6.6)
[2021-01-20] MEDS ORDERED: Propofol 1,000 MG/100 ML VIAL IV ONE (12:27)
[2021-01-20] MEDS: HumaLOG 300 UNITS/3 ML VIAL SC PRN ×2 (12:34→16:20)
[2021-01-20 16:53] LABS: Troponin I 5.944 ng/mL (< 0.028)
[2021-01-20] MEDS: Meropenem 500 MG in Sodium Chloride 0.9% 100 ML IVPB SCH (16:55)
[2021-01-20] MEDS: Norepinephrine 8 MG/0.9% NS 250 ML IVPB SCH (17:56)
[2021-01-20] MEDS: Propofol 1,000 MG/100 ML VIAL IV PRN (18:36)
[2021-01-20] MEDS ORDERED: EPINEPHrine 1 MG/10 ML Abboject SYRINGE ONE (19:07)
[2021-01-20] MEDS ORDERED: Sodium Bicarb 50 MEQ/50 ML Abboject 8.4% SYRINGE ONE (19:07)
[2021-01-20] MEDS: Clopidogrel Bisulfate 75 MG TAB PER TUBE SCH (20:32)
[2021-01-20] MEDS: Atorvastatin Calcium 40 MG TAB PO SCH (20:32)
[2021-01-20] MEDS: Lantus 1000 UNITS/10 ML VIAL SC SCH (20:33)
[2021-01-20] MEDS: Metoprolol Tartrate 25 MG TAB PO SCH (20:56)
[2021-01-21] MEDS: DOBUTamine 500 mg/250 ml 250 ML IVPB SCH ×2 (00:31→21:07)
[2021-01-21] MEDS: Propofol 1,000 MG/100 ML VIAL IV PRN ×5 (00:31→23:43)
[2021-01-21 03:40] LABS: Vancomycin, Trough 18.9 ug/mL
[2021-01-21] MEDS: fentaNYL Citrate-0.9 % NaCl/PF 100 ML IVPB SCH ×2 (04:07→23:43)
[2021-01-21] MEDS: Norepinephrine 8 MG/0.9% NS 250 ML IVPB SCH ×2 (05:34→17:24)
[2021-01-21] MEDS: Meropenem 500 MG in Sodium Chloride 0.9% 100 ML IVPB SCH ×2 (05:38→17:30)
[2021-01-21] MEDS: HumaLOG 300 UNITS/3 ML VIAL SC PRN ×4 (06:00→22:05)
[2021-01-21 07:06] LABS: ALV-art Gradient 260.475 mmHg (0-20); Actual Bicarbonate (HCO3a) 23.4 mEq/L (22-28); Base Excess (BEa) -0.5 mEq/L (-2.0 to +3.0); CO2 Tension 35.3 mmHg (35.0-45.0); Calcium, Ionized (arterial) 1.21 mmol/L (1.12-1.30); Carboxyhemoglobin (COHb) 0.3 gm% (0.0-3.0); O2 Tension (PaO2), arterial 51.9 mmHg (> 60.0); Potassium - ABG Lab 3.5 mmol/L (3.70-5.30); Puncture Site RRA; pH, Arterial 7.44 (7.35-7.45)
[2021-01-21 08:38] LABS: Anion Gap 14 mmol/L (10-20); BUN (Urea Nitrogen) 104 mg/dL (8.4-25.7); Calc. Creatinine Clearance 20 mL/min (70-130); Calcium 8.8 mg/dL (7.8-10.44); Carbon Dioxide 23 mmol/L (23-31); Chloride 115 mmol/L (98-107); Glucose 212 mg/dL (83-110); Potassium 3.5 mmol/L (3.5-5.1); Sodium 148 mmol/L (136-145)
[2021-01-21] MEDS: Aspirin 81 mg Enteric Coated Tablet PO SCH (08:58)
[2021-01-21] MEDS: Docusate 100 MG CAP PO SCH ×2 (08:58→21:08)
[2021-01-21] MEDS: Metoprolol Tartrate 25 MG TAB PO SCH ×2 (08:58→22:06)
[2021-01-21] MEDS: Pantoprazole 40 MG VIAL IVP SCH (08:58)
[2021-01-21] MEDS ORDERED: Vancomycin HCl 500 MG in Sodium Chloride 0.9% 100 ML IVPB SCH (14:00)
[2021-01-21] MEDS: Hydrocortisone Sod Succ/PF 100 mg/2 ml Vial IVP SCH ×2 (15:01→21:08)
[2021-01-21 15:25] LABS: #Basophils 0.1 10x3/uL (0.0-0.2); #Eosinphils 0.6 10x3/uL (0.0-0.5); #Monocytes 1.3 10x3/uL (0.0-1.1); #Neutrophils 15.4 10x3/uL (1.5-8.4); %Basophils 0.3 % (0.0-2.0); %Eosinophils 2.8 % (0.0-6.0); %Lymphocytes 10.7 % (18.0-47.0); %Monocytes 6.5 % (0.0-10.0); %Neutrophils 78.7 % (40.0-75.0); Hemoglobin 8.1 g/dL (13.5-17.5); Mean Corpuscular Hemoglobin 28.9 pg (27.0-33.0); Mean Corpuscular Volume 96.4 fl (81.2-95.1); Platelet Count 262 10x3/uL (150-450); White Blood Cell (WBC) Count 19.5 10x3/uL (3.5-10.5)
[2021-01-21] MEDS: Lantus 1000 UNITS/10 ML VIAL SC SCH (21:08)
[2021-01-21] MEDS: Clopidogrel Bisulfate 75 MG TAB PER TUBE SCH (21:08)
[2021-01-21] MEDS: Atorvastatin Calcium 40 MG TAB PO SCH (21:08)
[2021-01-22 03:09] LABS: Hemoglobin 8.2 g/dL (13.5-17.5); Mean Corpuscular HGB CONC 30.1 g/dL (32.0-36.0); Mean Corpuscular Hemoglobin 28.7 pg (27.0-33.0); Mean Corpuscular Volume 95.1 fl (81.2-95.1); Mean Platelet Volume 10.3 fl (7.4-10.4); Platelet Count 277 10x3/uL (150-450); RBC Distribution Width 16.2 % (11.5-14.5); Red Blood Cell (RBC) Count 2.86 10x6/uL (4.32-5.72); White Blood Cell (WBC) Count 18.9 10x3/uL (3.5-10.5)
[2021-01-22 03:10] LABS: MDiff Complete? YES
[2021-01-22 03:45] LABS: Anion Gap 13 mmol/L (10-20); BUN (Urea Nitrogen) 95 mg/dL (8.4-25.7); Calc. Creatinine Clearance 23 mL/min (70-130); Calcium 8.7 mg/dL (7.8-10.44); Carbon Dioxide 24 mmol/L (23-31); Chloride 117 mmol/L (98-107); Glucose 244 mg/dL (83-110); Potassium 3.8 mmol/L (3.5-5.1); Sodium 150 mmol/L (136-145)
[2021-01-22] MEDS: Meropenem 500 MG in Sodium Chloride 0.9% 100 ML IVPB SCH ×2 (04:27→16:43)
[2021-01-22] MEDS: Norepinephrine 8 MG/0.9% NS 250 ML IVPB SCH ×2 (06:10→22:29)
[2021-01-22] MEDS: HumaLOG 300 UNITS/3 ML VIAL SC PRN ×5 (06:18→22:26)
[2021-01-22 07:23] LABS: Band 4 % (5-11); Lymphocytes 10 % (21-51); Monocytes 5 % (0-10); Neutrophil 78 % (42-75); Reactive Lymphocytes 3 % (0-10)
[2021-01-22 07:29] LABS: Actual Bicarbonate (HCO3a) 23.1 mEq/L (22-28); Base Excess (BEa) -1.9 mEq/L (-2.0 to +3.0); CO2 Tension 39.8 mmHg (35.0-45.0); Calcium, Ionized (arterial) 1.21 mmol/L (1.12-1.30); Carboxyhemoglobin (COHb) 0.7 gm% (0.0-3.0); Hemoglobin (Hb) 9.2 g/dL (14.0-18.0); O2 Tension (PaO2), arterial 47.5 mmHg (> 60.0); Potassium - ABG Lab 3.7 mmol/L (3.70-5.30); Puncture Site LRA; pH, Arterial 7.38 (7.35-7.45)
[2021-01-22] MEDS: Aspirin 81 mg Enteric Coated Tablet PO SCH (08:50)
[2021-01-22] MEDS: Pantoprazole 40 MG VIAL IVP SCH (08:51)
[2021-01-22] MEDS: Dextrose 5% in Water 1,000 ML IV SCH (08:51)
[2021-01-22] MEDS: Metoprolol Tartrate 25 MG TAB PO SCH ×2 (08:51→22:24)
[2021-01-22] MEDS: Docusate 100 MG CAP PO SCH ×2 (08:51→19:46)
[2021-01-22] MEDS: methylPREDNISolone Sod Succ 40 MG VIAL IVP SCH ×2 (12:43→17:34)
[2021-01-22 14:31] LABS: Vancomycin, Random 15.6 ug/mL (See Comment)
[2021-01-22] MEDS: DOBUTamine 500 mg/250 ml 250 ML IVPB SCH (15:51)
[2021-01-22] MEDS ORDERED: Epoetin (ESRD) 10,000 UNITS/ML VIAL SC SCH (16:00)
[2021-01-22] MEDS: EPOETIN ALFA-EPBX (ESRD) 10,000 UNIT/ML VIAL SC SCH (16:44)
[2021-01-22] MEDS ORDERED: Vancomycin HCl 500 MG in Sodium Chloride 0.9% 100 ML IVPB SCH (17:00)
[2021-01-22] MEDS: Propofol 1,000 MG/100 ML VIAL IV PRN (19:44)
[2021-01-22] MEDS: Atorvastatin Calcium 40 MG TAB PO SCH (19:45)
[2021-01-22] MEDS: Clopidogrel Bisulfate 75 MG TAB PER TUBE SCH (19:45)
[2021-01-22] MEDS: Lantus 1000 UNITS/10 ML VIAL SC SCH (19:46)
[2021-01-22] MEDS: fentaNYL Citrate-0.9 % NaCl/PF 100 ML IVPB SCH (22:40)
[2021-01-23] MEDS: methylPREDNISolone Sod Succ 40 MG VIAL IVP SCH ×4 (01:04→21:01)
[2021-01-23 04:16] LABS: Anion Gap 14 mmol/L (10-20); BUN (Urea Nitrogen) 89 mg/dL (8.4-25.7); Calc. Creatinine Clearance 26 mL/min (70-130); Calcium 8.4 mg/dL (7.8-10.44); Carbon Dioxide 22 mmol/L (23-31); Chloride 114 mmol/L (98-107); Glucose 252 mg/dL (83-110); Potassium 3.9 mmol/L (3.5-5.1); Sodium 146 mmol/L (136-145)
[2021-01-23 04:30] LABS: Hemoglobin 8.1 g/dL (13.5-17.5); Mean Corpuscular HGB CONC 30.6 g/dL (32.0-36.0); Mean Platelet Volume 10.7 fl (7.4-10.4); Platelet Count 281 10x3/uL (150-450); RBC Distribution Width 15.9 % (11.5-14.5); Red Blood Cell (RBC) Count 2.79 10x6/uL (4.32-5.72); White Blood Cell (WBC) Count 15.5 10x3/uL (3.5-10.5)
[2021-01-23] MEDS: Meropenem 500 MG in Sodium Chloride 0.9% 100 ML IVPB SCH ×2 (04:33→17:10)
[2021-01-23 06:02] LABS: MDiff Complete? YES
[2021-01-23 06:07] LABS: Lymphocytes 4 % (21-51); Monocytes 3 % (0-10); Neutrophil 93 % (42-75); Nucleated RBC 1 % (0)
[2021-01-23 06:11] LABS: Hypochromia SLIGHT = 6-15 cells (100X) (0-5/hpf); Target Cells SLIGHT = 2-5 cells (100X) (0-1/hpf)
[2021-01-23 06:12] LABS: Large Platelets SLIGHT; Platelet Clumps SLIGHT
[2021-01-23 07:17] LABS: ALV-art Gradient 98.125 mmHg (0-20); Actual Bicarbonate (HCO3a) 22.9 mEq/L (22-28); Base Excess (BEa) -0.7 mEq/L (-2.0 to +3.0); CO2 Tension 33.5 mmHg (35.0-45.0); Calcium, Ionized (arterial) 1.18 mmol/L (1.12-1.30); Carboxyhemoglobin (COHb) 0.6 gm% (0.0-3.0); Hemoglobin (Hb) 8.5 g/dL (14.0-18.0); O2 Tension (PaO2), arterial 145.2 mmHg (> 60.0); Potassium - ABG Lab 3.8 mmol/L (3.70-5.30); Puncture Site RBA; pH, Arterial 7.45 (7.35-7.45)
[2021-01-23] MEDS: Pantoprazole 40 MG VIAL IVP SCH (07:49)
[2021-01-23] MEDS: Aspirin 81 mg Enteric Coated Tablet PO SCH (07:49)
[2021-01-23] MEDS: Metoprolol Tartrate 25 MG TAB PO SCH ×2 (07:50→22:43)
[2021-01-23] MEDS: Docusate 100 MG CAP PO SCH (07:50)
[2021-01-23] MEDS: HumaLOG 300 UNITS/3 ML VIAL SC PRN ×4 (08:13→21:02)
[2021-01-23] MEDS: Dextrose 5% in Water 1,000 ML IV SCH (10:39)
[2021-01-23] MEDS: DOBUTamine 500 mg/250 ml 250 ML IVPB SCH (10:51)
[2021-01-23 14:09] LABS: SARS-CoV-2 PCR by NAA Not Detected (NotDetected)
[2021-01-23] MEDS: Propofol 1,000 MG/100 ML VIAL IV PRN (15:15)
[2021-01-23 15:32] LABS: Vancomycin, Random 17.3 ug/mL (See Comment)
[2021-01-23] MEDS ORDERED: Vancomycin HCl 500 MG in Sodium Chloride 0.9% 100 ML IVPB SCH (16:00)
[2021-01-23] MEDS: Atorvastatin Calcium 40 MG TAB PO SCH (20:57)
[2021-01-23] MEDS: Clopidogrel Bisulfate 75 MG TAB PER TUBE SCH (21:01)
[2021-01-23] MEDS: Docusate Sodium 100 MG/10 ML UDCUP PO SCH (21:01)
[2021-01-23] MEDS: Lantus 1000 UNITS/10 ML VIAL SC SCH (21:02)
[2021-01-24 05:10] LABS: #Monocytes 0.6 10x3/uL (0.0-1.1); #Neutrophils 12.5 10x3/uL (1.5-8.4); %Basophils 0.1 % (0.0-2.0); %Monocytes 4.3 % (0.0-10.0); %Neutrophils 87.5 % (40.0-75.0); Hemoglobin 7.7 g/dL (13.5-17.5); Mean Corpuscular HGB CONC 30.4 g/dL (32.0-36.0); Mean Corpuscular Hemoglobin 28.4 pg (27.0-33.0); Mean Corpuscular Volume 93.4 fl (81.2-95.1); Mean Platelet Volume 10.5 fl (7.4-10.4); Platelet Count 285 10x3/uL (150-450); RBC Distribution Width 15.9 % (11.5-14.5); Red Blood Cell (RBC) Count 2.71 10x6/uL (4.32-5.72); White Blood Cell (WBC) Count 14.2 10x3/uL (3.5-10.5)
[2021-01-24 05:25] LABS: Anion Gap 13 mmol/L (10-20); BUN (Urea Nitrogen) 90 mg/dL (8.4-25.7); Calc. Creatinine Clearance 28 mL/min (70-130); Calcium 8.3 mg/dL (7.8-10.44); Carbon Dioxide 23 mmol/L (23-31); Chloride 113 mmol/L (98-107); Glucose 265 mg/dL (83-110); Potassium 3.7 mmol/L (3.5-5.1); Sodium 145 mmol/L (136-145)
[2021-01-24] MEDS: Meropenem 500 MG in Sodium Chloride 0.9% 100 ML IVPB SCH ×2 (05:53→16:08)
[2021-01-24] MEDS: Propofol 1,000 MG/100 ML VIAL IV PRN ×2 (05:55→21:07)
[2021-01-24] MEDS: fentaNYL Citrate-0.9 % NaCl/PF 100 ML IVPB SCH (06:17)
[2021-01-24] MEDS: methylPREDNISolone Sod Succ 40 MG VIAL IVP SCH (07:32)
[2021-01-24] MEDS: Metoprolol Tartrate 25 MG TAB PO SCH ×2 (07:32→21:03)
[2021-01-24] MEDS: Aspirin 81 mg Enteric Coated Tablet PO SCH (07:32)
[2021-01-24] MEDS: Docusate Sodium 100 MG/10 ML UDCUP PO SCH ×2 (07:33→21:03)
[2021-01-24] MEDS: Pantoprazole 40 MG VIAL IVP SCH (07:33)
[2021-01-24 07:54] LABS: Actual Bicarbonate (HCO3a) 22.6 mEq/L (22-28); Base Excess (BEa) -0.4 mEq/L (-2.0 to +3.0); CO2 Tension 30.5 mmHg (35.0-45.0); Calcium, Ionized (arterial) 1.18 mmol/L (1.12-1.30); Carboxyhemoglobin (COHb) 0.7 gm% (0.0-3.0); Hemoglobin (Hb) 8.5 g/dL (14.0-18.0); O2 Tension (PaO2), arterial 90.5 mmHg (> 60.0); Potassium - ABG Lab 3.6 mmol/L (3.70-5.30); Puncture Site LBA; pH, Arterial 7.49 (7.35-7.45)
[2021-01-24] MEDS: HumaLOG 300 UNITS/3 ML VIAL SC PRN ×4 (07:57→21:04)
[2021-01-24 07:58] LABS: ALV-art Gradient 156.575 mmHg (0-20)
[2021-01-24 10:35] LABS: Actual Bicarbonate (HCO3v) 25 mEq/L (22-28); Base Excess 1.1 mEq/L (-2.0 to +3.0); Calcium, Ionized (venous) 1.17 mmol/L (1.16-1.32); Chloride (VBG) 112 mmol/L (98-106); Hemoglobin (Hb) 8.2 g/dL (12.6-17.4); Potassium (VBG) 3.61 mmol/L (3.70-5.30); Puncture Site Other Site; Sodium 139.8 mmol/L (133-146); pH (venous) 7.45 (7.32-7.43)
[2021-01-24 15:17] LABS: Vancomycin, Random 17.1 ug/mL (See Comment)
[2021-01-24] MEDS ORDERED: Vancomycin HCl 500 MG in Sodium Chloride 0.9% 100 ML IVPB SCH (16:00)
[2021-01-24] MEDS: DOBUTamine 500 mg/250 ml 250 ML IVPB SCH (16:09)
[2021-01-24] MEDS: Lantus 1000 UNITS/10 ML VIAL SC SCH (21:03)
[2021-01-24] MEDS: Clopidogrel Bisulfate 75 MG TAB PER TUBE SCH (21:03)
[2021-01-24] MEDS: Atorvastatin Calcium 40 MG TAB PO SCH (21:03)
[2021-01-24 22:38] LABS: Anion Gap 14 mmol/L (10-20); BUN (Urea Nitrogen) 91 mg/dL (8.4-25.7); Calc. Creatinine Clearance 30 mL/min (70-130); Calcium 8.3 mg/dL (7.8-10.44); Carbon Dioxide 22 mmol/L (23-31); Chloride 109 mmol/L (98-107); Glucose 266 mg/dL (83-110); Magnesium 2.8 mg/dL (1.6-2.6); Potassium 3.6 mmol/L (3.5-5.1); Sodium 141 mmol/L (136-145)
[2021-01-25] MEDS: fentaNYL Citrate-0.9 % NaCl/PF 100 ML IVPB SCH (02:06)
[2021-01-25] MEDS: Norepinephrine 8 MG/0.9% NS 250 ML IVPB SCH (02:17)
[2021-01-25 04:18] LABS: #Monocytes 1.1 10x3/uL (0.0-1.1); %Basophils 0.3 % (0.0-2.0); %Eosinophils 0.3 % (0.0-6.0); %Lymphocytes 13.9 % (18.0-47.0); %Monocytes 7.3 % (0.0-10.0); %Neutrophils 76.4 % (40.0-75.0); Hemoglobin 8.3 g/dL (13.5-17.5); Mean Corpuscular HGB CONC 31.2 g/dL (32.0-36.0); Mean Corpuscular Hemoglobin 28.6 pg (27.0-33.0); Mean Corpuscular Volume 91.7 fl (81.2-95.1); Mean Platelet Volume 10.4 fl (7.4-10.4); Platelet Count 300 10x3/uL (150-450); RBC Distribution Width 15.8 % (11.5-14.5); White Blood Cell (WBC) Count 14.3 10x3/uL (3.5-10.5)
[2021-01-25 04:34] LABS: Anion Gap 11 mmol/L (10-20); BUN (Urea Nitrogen) 87 mg/dL (8.4-25.7); Calc. Creatinine Clearance 32 mL/min (70-130); Calcium 8.2 mg/dL (7.8-10.44); Carbon Dioxide 24 mmol/L (23-31); Chloride 112 mmol/L (98-107); Glucose 216 mg/dL (83-110); Potassium 3.3 mmol/L (3.5-5.1); Sodium 144 mmol/L (136-145)
[2021-01-25] MEDS: Meropenem 500 MG in Sodium Chloride 0.9% 100 ML IVPB SCH ×2 (06:31→16:28)
[2021-01-25] MEDS: DOBUTamine 500 mg/250 ml 250 ML IVPB SCH (07:34)
[2021-01-25] MEDS: Propofol 1,000 MG/100 ML VIAL IV PRN (07:35)
[2021-01-25] MEDS ORDERED: Potassium Chloride 10 MEQ in Premix Bag 1 BAG IVPB SCH (08:00)
[2021-01-25 08:02] LABS: Base Excess (BEa) -0.6 mEq/L (-2.0 to +3.0); CO2 Tension 39.1 mmHg (35.0-45.0); Carboxyhemoglobin (COHb) 0.2 gm% (0.0-3.0); Hemoglobin (Hb) 9.2 g/dL (14.0-18.0); O2 Tension (PaO2), arterial 88.8 mmHg (> 60.0); Potassium - ABG Lab 3.2 mmol/L (3.70-5.30); Puncture Site RBA; pH, Arterial 7.41 (7.35-7.45)
[2021-01-25 08:05] LABS: ALV-art Gradient 147.525 mmHg (0-20)
[2021-01-25] MEDS: HumaLOG 300 UNITS/3 ML VIAL SC PRN ×3 (08:15→15:55)
[2021-01-25] MEDS: Enoxaparin Sodium 30 MG/0.3 ML SYRINGE SC SCH (08:42)
[2021-01-25] MEDS: Docusate Sodium 100 MG/10 ML UDCUP PO SCH ×2 (08:42→20:31)
[2021-01-25] MEDS: Aspirin 81 mg Enteric Coated Tablet PO SCH (08:42)
[2021-01-25] MEDS: Pantoprazole 40 MG VIAL IVP SCH (08:44)
[2021-01-25] MEDS ORDERED: methylPREDNISolone Sod Succ 40 MG VIAL IVP SCH (09:00)
[2021-01-25] MEDS ORDERED: Potassium Chloride 20 MEQ in Premix Bag 1 BAG IVPB SCH (10:00)
[2021-01-25 13:49] LABS: Actual Bicarbonate (HCO3v) 23 mEq/L (22-28); Base Excess -6.5 mEq/L (-2.0 to +3.0); Calcium, Ionized (venous) 1.23 mmol/L (1.16-1.32); Chloride (VBG) 110 mmol/L (98-106); Puncture Site Other Site; Sodium 139.4 mmol/L (133-146); pH (venous) 7.16 (7.32-7.43)
[2021-01-25 13:50] LABS: Actual Bicarbonate (HCO3a) 24.8 mEq/L (22-28); Base Excess (BEa) -3.7 mEq/L (-2.0 to +3.0); CO2 Tension 64.4 mmHg (35.0-45.0); Calcium, Ionized (arterial) 1.24 mmol/L (1.12-1.30); Carboxyhemoglobin (COHb) 0.2 gm% (0.0-3.0); O2 Tension (PaO2), arterial 105.7 mmHg (> 60.0); Potassium - ABG Lab 4.1 mmol/L (3.70-5.30); Puncture Site RBA
[2021-01-25 16:05] LABS: Vancomycin, Random 15.8 ug/mL (See Comment)
[2021-01-25 16:08] LABS: Actual Bicarbonate (HCO3a) 23.1 mEq/L (22-28); Base Excess (BEa) -2.4 mEq/L (-2.0 to +3.0); CO2 Tension 42.6 mmHg (35.0-45.0); Carboxyhemoglobin (COHb) 0.3 gm% (0.0-3.0); Hemoglobin (Hb) 9.8 g/dL (14.0-18.0); O2 Tension (PaO2), arterial 95.4 mmHg (> 60.0); Potassium - ABG Lab 4.2 mmol/L (3.70-5.30); Puncture Site RBA; pH, Arterial 7.35 (7.35-7.45)
[2021-01-25] MEDS: Vancomycin HCl 500 MG in Sodium Chloride 0.9% 100 ML IVPB SCH (17:24)
[2021-01-25] MEDS: Atorvastatin Calcium 40 MG TAB PO SCH (20:29)
[2021-01-25] MEDS: Clopidogrel Bisulfate 75 MG TAB PER TUBE SCH (20:29)
[2021-01-25] MEDS: Lantus 1000 UNITS/10 ML VIAL SC SCH (20:30)
[2021-01-25] MEDS ORDERED: Vancomycin 1 GM in Premix Bag 1 BAG IVPB SCH (21:00)
[2021-01-26 03:33] LABS: #Monocytes 1.2 10x3/uL (0.0-1.1); #Neutrophils 13.2 10x3/uL (1.5-8.4); %Basophils 0.1 % (0.0-2.0); %Eosinophils 0.2 % (0.0-6.0); %Lymphocytes 10.1 % (18.0-47.0); %Monocytes 7.1 % (0.0-10.0); %Neutrophils 81.1 % (40.0-75.0); Hemoglobin 8.7 g/dL (13.5-17.5); Mean Corpuscular HGB CONC 30.5 g/dL (32.0-36.0); Mean Corpuscular Hemoglobin 28.6 pg (27.0-33.0); Mean Corpuscular Volume 93.8 fl (81.2-95.1); Mean Platelet Volume 10.1 fl (7.4-10.4); Platelet Count 323 10x3/uL (150-450); RBC Distribution Width 15.9 % (11.5-14.5); Red Blood Cell (RBC) Count 3.04 10x6/uL (4.32-5.72); White Blood Cell (WBC) Count 16.3 10x3/uL (3.5-10.5)
[2021-01-26] MEDS: DOBUTamine 500 mg/250 ml 250 ML IVPB SCH ×2 (03:40→20:49)
[2021-01-26 03:46] LABS: Anion Gap 12 mmol/L (10-20); BUN (Urea Nitrogen) 82 mg/dL (8.4-25.7); Calc. Creatinine Clearance 34 mL/min (70-130); Calcium 8.7 mg/dL (7.8-10.44); Carbon Dioxide 24 mmol/L (23-31); Chloride 111 mmol/L (98-107); Glucose 151 mg/dL (83-110); Potassium 3.8 mmol/L (3.5-5.1); Sodium 143 mmol/L (136-145)
[2021-01-26] MEDS: Meropenem 1 GM in Sodium Chloride 0.9% 100 ML IVPB SCH ×2 (04:57→17:22)
[2021-01-26] MEDS: Enoxaparin Sodium 30 MG/0.3 ML SYRINGE SC SCH (08:57)
[2021-01-26] MEDS: Pantoprazole 40 MG VIAL IVP SCH (08:58)
[2021-01-26] MEDS: Aspirin 81 mg Enteric Coated Tablet PO SCH (08:58)
[2021-01-26] MEDS: Docusate Sodium 100 MG/10 ML UDCUP PO SCH ×2 (08:58→22:32)
[2021-01-26] MEDS: Norepinephrine 8 MG/0.9% NS 250 ML IVPB SCH (10:14)
[2021-01-26] MEDS: Vancomycin HCl 500 MG in Sodium Chloride 0.9% 100 ML IVPB SCH (17:22)
[2021-01-26] MEDS: Atorvastatin Calcium 40 MG TAB PO SCH (22:32)
[2021-01-26] MEDS: Clopidogrel Bisulfate 75 MG TAB PER TUBE SCH (22:32)
[2021-01-26] MEDS: Lantus 1000 UNITS/10 ML VIAL SC SCH (22:40)
[2021-01-27 04:31] LABS: Anion Gap 11 mmol/L (10-20); BUN (Urea Nitrogen) 67 mg/dL (8.4-25.7); Carbon Dioxide 26 mmol/L (23-31); Chloride 115 mmol/L (98-107); Potassium 3.7 mmol/L (3.5-5.1); Sodium 148 mmol/L (136-145)
[2021-01-27 04:32] LABS: Calc. Creatinine Clearance 40 mL/min (70-130); Calcium 8.6 mg/dL (7.8-10.44); Glucose 133 mg/dL (83-110)
[2021-01-27 04:39] LABS: #Eosinphils 0.3 10x3/uL (0.0-0.5); #Monocytes 0.9 10x3/uL (0.0-1.1); #Neutrophils 11.6 10x3/uL (1.5-8.4); %Basophils 0.1 % (0.0-2.0); %Eosinophils 1.9 % (0.0-6.0); %Lymphocytes 10.6 % (18.0-47.0); %Neutrophils 80.6 % (40.0-75.0); Hemoglobin 8.4 g/dL (13.5-17.5); Mean Corpuscular HGB CONC 29.8 g/dL (32.0-36.0); Mean Corpuscular Hemoglobin 28.5 pg (27.0-33.0); Mean Corpuscular Volume 95.6 fl (81.2-95.1); Mean Platelet Volume 10.5 fl (7.4-10.4); Platelet Count 288 10x3/uL (150-450); Red Blood Cell (RBC) Count 2.95 10x6/uL (4.32-5.72); White Blood Cell (WBC) Count 14.3 10x3/uL (3.5-10.5)
[2021-01-27 05:00] LABS: Anisocytosis SLIGHT = 6-15 cells (100X) (0-5/hpf); Platelet Morphology Comment Appears Adequate
[2021-01-27] MEDS: Meropenem 1 GM in Sodium Chloride 0.9% 100 ML IVPB SCH ×2 (05:40→17:20)
[2021-01-27] MEDS: Aspirin 81 mg Enteric Coated Tablet PO SCH ×2 (08:48→09:04)
[2021-01-27] MEDS: Enoxaparin Sodium 30 MG/0.3 ML SYRINGE SC SCH (08:48)
[2021-01-27] MEDS: Docusate Sodium 100 MG/10 ML UDCUP PO SCH ×2 (08:48→21:02)
[2021-01-27] MEDS: Pantoprazole 40 MG VIAL IVP SCH (08:49)
[2021-01-27] MEDS ORDERED: Furosemide 20 MG/2 ML VIAL SLOW IVP SCH (09:15)
[2021-01-27] MEDS: HumaLOG 300 UNITS/3 ML VIAL SC PRN ×2 (11:27→16:19)
[2021-01-27 13:53] LABS: Anion Gap 13 mmol/L (10-20); BUN (Urea Nitrogen) 66 mg/dL (8.4-25.7); Calc. Creatinine Clearance 39 mL/min (70-130); Calcium 8.9 mg/dL (7.8-10.44); Carbon Dioxide 25 mmol/L (23-31); Chloride 115 mmol/L (98-107); Glucose 174 mg/dL (83-110); Potassium 4.1 mmol/L (3.5-5.1); Sodium 149 mmol/L (136-145)
[2021-01-27] MEDS ORDERED: Dextrose 5% in Water 1,000 ML IV SCH ×2 (14:15→17:30)
[2021-01-27] MEDS ORDERED: Meropenem 1 GM VIAL ONE (20:35)
[2021-01-27] MEDS: Clopidogrel Bisulfate 75 MG TAB PER TUBE SCH (21:02)
[2021-01-27] MEDS: Lantus 1000 UNITS/10 ML VIAL SC SCH (21:02)
[2021-01-27] MEDS: Atorvastatin Calcium 40 MG TAB PO SCH (21:02)
[2021-01-28 04:12] LABS: #Eosinphils 0.1 10x3/uL (0.0-0.5); #Monocytes 0.6 10x3/uL (0.0-1.1); %Basophils 0.1 % (0.0-2.0); %Eosinophils 0.4 % (0.0-6.0); %Lymphocytes 7.2 % (18.0-47.0); %Monocytes 4.2 % (0.0-10.0); %Neutrophils 87.1 % (40.0-75.0); Hemoglobin 8.7 g/dL (13.5-17.5); Mean Corpuscular HGB CONC 29.3 g/dL (32.0-36.0); Mean Corpuscular Hemoglobin 28.6 pg (27.0-33.0); Mean Corpuscular Volume 97.7 fl (81.2-95.1); Mean Platelet Volume 10.6 fl (7.4-10.4); Platelet Count 320 10x3/uL (150-450); RBC Distribution Width 16.3 % (11.5-14.5); Red Blood Cell (RBC) Count 3.04 10x6/uL (4.32-5.72); White Blood Cell (WBC) Count 14.9 10x3/uL (3.5-10.5)
[2021-01-28] MEDS: Meropenem 1 GM in Sodium Chloride 0.9% 100 ML IVPB SCH (04:18)
[2021-01-28 04:26] LABS: Anion Gap 12 mmol/L (10-20); BUN (Urea Nitrogen) 67 mg/dL (8.4-25.7); Calc. Creatinine Clearance 39 mL/min (70-130); Carbon Dioxide 26 mmol/L (23-31); Chloride 115 mmol/L (98-107); Glucose 183 mg/dL (83-110); Magnesium 2.8 mg/dL (1.6-2.6); Potassium 4.1 mmol/L (3.5-5.1); Sodium 149 mmol/L (136-145)
[2021-01-28 05:04] LABS: Platelet Morphology Comment Appears Adequate
[2021-01-28 05:05] LABS: Hypochromia SLIGHT = 6-15 cells (100X) (0-5/hpf)
[2021-01-28] MEDS: Enoxaparin Sodium 30 MG/0.3 ML SYRINGE SC SCH (08:10)
[2021-01-28] MEDS: Docusate Sodium 100 MG/10 ML UDCUP PO SCH ×2 (08:10→20:54)
[2021-01-28] MEDS: Aspirin 81 mg Enteric Coated Tablet PO SCH (08:10)
[2021-01-28] MEDS: Pantoprazole 40 MG VIAL IVP SCH (08:11)
[2021-01-28] MEDS: Dextrose 5% in Water 1,000 ML IV SCH (11:27)
[2021-01-28] MEDS: HumaLOG 300 UNITS/3 ML VIAL SC PRN ×3 (12:21→20:55)
[2021-01-28 12:24] VITALS: BMI 31.4
[2021-01-28 15:21] LABS: Anion Gap 13 mmol/L (10-20); BUN (Urea Nitrogen) 68 mg/dL (8.4-25.7); Calc. Creatinine Clearance 38 mL/min (70-130); Calcium 9.1 mg/dL (7.8-10.44); Carbon Dioxide 26 mmol/L (23-31); Chloride 113 mmol/L (98-107); Glucose 192 mg/dL (83-110); Sodium 148 mmol/L (136-145)
[2021-01-28] MEDS: Clopidogrel Bisulfate 75 MG TAB PER TUBE SCH (20:54)
[2021-01-28] MEDS: Lantus 1000 UNITS/10 ML VIAL SC SCH (20:54)
[2021-01-28] MEDS: Atorvastatin Calcium 40 MG TAB PO SCH (20:54)
[2021-01-29] MEDS: Dextrose 5% in Water 1,000 ML IV SCH (01:02)
[2021-01-29 03:27] LABS: #Eosinphils 0.1 10x3/uL (0.0-0.5); #Monocytes 0.6 10x3/uL (0.0-1.1); #Neutrophils 13.3 10x3/uL (1.5-8.4); %Basophils 0.1 % (0.0-2.0); %Eosinophils 0.7 % (0.0-6.0); %Lymphocytes 6.2 % (18.0-47.0); %Neutrophils 88.1 % (40.0-75.0); Hemoglobin 8.8 g/dL (13.5-17.5); Mean Corpuscular HGB CONC 29.8 g/dL (32.0-36.0); Mean Corpuscular Hemoglobin 28.9 pg (27.0-33.0); Mean Corpuscular Volume 96.7 fl (81.2-95.1); Mean Platelet Volume 10.4 fl (7.4-10.4); Platelet Count 316 10x3/uL (150-450); RBC Distribution Width 16.7 % (11.5-14.5); Red Blood Cell (RBC) Count 3.05 10x6/uL (4.32-5.72); White Blood Cell (WBC) Count 15.1 10x3/uL (3.5-10.5)
[2021-01-29 03:43] LABS: Anion Gap 13 mmol/L (10-20); BUN (Urea Nitrogen) 68 mg/dL (8.4-25.7); Calc. Creatinine Clearance 37 mL/min (70-130); Carbon Dioxide 25 mmol/L (23-31); Chloride 112 mmol/L (98-107); Glucose 223 mg/dL (83-110); Sodium 146 mmol/L (136-145)
[2021-01-29 03:54] LABS: Hypochromia SLIGHT = 6-15 cells (100X) (0-5/hpf); Platelet Morphology Comment Appears Adequate
[2021-01-29] MEDS ORDERED: Enoxaparin Sodium 30 MG/0.3 ML SYRINGE ONE (07:37)
[2021-01-29] MEDS: Docusate Sodium 100 MG/10 ML UDCUP PO SCH ×2 (07:43→20:36)
[2021-01-29] MEDS: Enoxaparin Sodium 30 MG/0.3 ML SYRINGE SC SCH (07:44)
[2021-01-29] MEDS: Pantoprazole 40 MG VIAL IVP SCH (07:44)
[2021-01-29] MEDS: Aspirin 81 mg Enteric Coated Tablet PO SCH (07:44)
[2021-01-29] MEDS: HumaLOG 300 UNITS/3 ML VIAL SC PRN ×2 (08:48→11:59)
[2021-01-29] MEDS: EPOETIN ALFA-EPBX (ESRD) 10,000 UNIT/ML VIAL SC SCH (18:14)
[2021-01-29] MEDS: Atorvastatin Calcium 40 MG TAB PO SCH (20:36)
[2021-01-29] MEDS: Lantus 1000 UNITS/10 ML VIAL SC SCH ×2 (20:36→20:42)
[2021-01-29] MEDS: Clopidogrel Bisulfate 75 MG TAB PER TUBE SCH (20:36)
[2021-01-30 06:22] LABS: Hemoglobin 8.5 g/dL (13.5-17.5); Mean Corpuscular HGB CONC 29.4 g/dL (32.0-36.0); Mean Corpuscular Hemoglobin 28.3 pg (27.0-33.0); Mean Corpuscular Volume 96.3 fl (81.2-95.1); Mean Platelet Volume 10.7 fl (7.4-10.4); Platelet Count 303 10x3/uL (150-450); RBC Distribution Width 16.8 % (11.5-14.5); White Blood Cell (WBC) Count 12.3 10x3/uL (3.5-10.5)
[2021-01-30 06:36] LABS: Anisocytosis SLIGHT = 6-15 cells (100X) (0-5/hpf)
[2021-01-30 06:37] LABS: Hypochromia SLIGHT = 6-15 cells (100X) (0-5/hpf); Target Cells SLIGHT = 2-5 cells (100X) (0-1/hpf)
[2021-01-30 07:14] LABS: Anion Gap 13 mmol/L (10-20); BUN (Urea Nitrogen) 74 mg/dL (8.4-25.7); Calc. Creatinine Clearance 34 mL/min (70-130); Calcium 9.3 mg/dL (7.8-10.44); Carbon Dioxide 27 mmol/L (23-31); Chloride 114 mmol/L (98-107); Glucose 101 mg/dL (83-110); Potassium 4.1 mmol/L (3.5-5.1); Sodium 150 mmol/L (136-145)
[2021-01-30 07:26] LABS: Eosinophils 1 % (0-10); Lymphocytes 5 % (21-51); Monocytes 2 % (0-10)
[2021-01-30 07:28] LABS: MDiff Complete? YES; Neutrophil 92 % (42-75)
[2021-01-30] MEDS: Pantoprazole 40 MG VIAL IVP SCH (07:50)
[2021-01-30] MEDS: Enoxaparin Sodium 30 MG/0.3 ML SYRINGE SC SCH (07:50)
[2021-01-30] MEDS: Aspirin 81 mg Enteric Coated Tablet PO SCH (07:50)
[2021-01-30] MEDS: Docusate Sodium 100 MG/10 ML UDCUP PO SCH ×2 (08:48→20:46)
[2021-01-30] MEDS ORDERED: Ondansetron ODT 4 MG TAB PO PRN (08:49)
[2021-01-30] MEDS ORDERED: Ondansetron PF 4 MG/2 ML Vial IVP PRN (08:49)
[2021-01-30] MEDS ORDERED: Bisacodyl 5 MG TAB PO PRN (08:49)
[2021-01-30] MEDS ORDERED: Loratadine 10 MG TAB PO PRN (08:49)
[2021-01-30] MEDS ORDERED: Loperamide HCl 2 MG CAP PO PRN (08:49)
[2021-01-30] MEDS ORDERED: GUAIFENESIN SF SOLN 200 MG/10 ML UDCUP PO PRN (08:49)
[2021-01-30] MEDS ORDERED: Sodium Chloride 0.65% Nasal 44 ML BOT EA NARE PRN (08:49)
[2021-01-30] MEDS ORDERED: Cepastat Lozenges 1 LOZ PO PRN (08:49)
[2021-01-30] MEDS ORDERED: Artificial Tear Sol 15 ML BOT EA EYE PRN (08:49)
[2021-01-30] MEDS ORDERED: hydrALAZINE 20 MG/ML VIAL SLOW IVP PRN (08:49)
[2021-01-30] MEDS ORDERED: Hydrocerin (Eucerin) Cream 120 gm Jar TOP PRN (08:49)
[2021-01-30] MEDS ORDERED: Calcium Carbonate 500 MG ChewTAB PO PRN (08:49)
[2021-01-30] MEDS ORDERED: Senokot S 8.6-50 MG TAB PO PRN (08:49)
[2021-01-30] MEDS ORDERED: Lantus 1000 UNITS/10 ML VIAL SC SCH (08:54)
[2021-01-30] MEDS ORDERED: Furosemide 40 MG/4 ML VIAL SLOW IVP SCH (09:00)
[2021-01-30] MEDS ORDERED: Empagliflozin 10 MG TAB PO SCH (11:45)
[2021-01-30] MEDS: Empagliflozin 10 MG TAB PO SCH (12:53)
[2021-01-30] MEDS: Atorvastatin Calcium 40 MG TAB PO SCH (20:46)
[2021-01-30] MEDS: Clopidogrel Bisulfate 75 MG TAB PER TUBE SCH (20:46)
[2021-01-30] MEDS: Lantus 1000 UNITS/10 ML VIAL SC SCH (21:33)
[2021-01-31 00:40] LABS: SARS-CoV-2 PCR by NAA Not Detected (NotDetected)
[2021-01-31] MEDS: Aspirin 81 mg Enteric Coated Tablet PO SCH (07:08)
[2021-01-31] MEDS: Docusate Sodium 100 MG/10 ML UDCUP PO SCH ×2 (07:08→22:05)
[2021-01-31] MEDS: Enoxaparin Sodium 30 MG/0.3 ML SYRINGE SC SCH (07:09)
[2021-01-31 07:11] LABS: #Eosinphils 0.3 10x3/uL (0.0-0.5); #Monocytes 0.5 10x3/uL (0.0-1.1); #Neutrophils 11.3 10x3/uL (1.5-8.4); %Basophils 0.1 % (0.0-2.0); %Eosinophils 1.9 % (0.0-6.0); %Lymphocytes 8.8 % (18.0-47.0); %Monocytes 3.9 % (0.0-10.0); %Neutrophils 84.6 % (40.0-75.0); Mean Corpuscular HGB CONC 29.6 g/dL (32.0-36.0); Mean Corpuscular Hemoglobin 28.6 pg (27.0-33.0); Mean Corpuscular Volume 96.4 fl (81.2-95.1); Platelet Count 286 10x3/uL (150-450); RBC Distribution Width 17.1 % (11.5-14.5); White Blood Cell (WBC) Count 13.4 10x3/uL (3.5-10.5)
[2021-01-31 07:42] LABS: Anion Gap 11 mmol/L (10-20); BUN (Urea Nitrogen) 82 mg/dL (8.4-25.7); Calc. Creatinine Clearance 32 mL/min (70-130); Calcium 9.5 mg/dL (7.8-10.44); Carbon Dioxide 28 mmol/L (23-31); Chloride 113 mmol/L (98-107); Glucose 153 mg/dL (83-110); Magnesium 2.9 mg/dL (1.6-2.6); Potassium 4.1 mmol/L (3.5-5.1); Sodium 148 mmol/L (136-145)
[2021-01-31 07:44] LABS: ALT (SGPT) 32 U/L (8-55); AST (SGOT) 33 U/L (5-34); Albumin 2.7 g/dL (3.4-4.8); Alkaline Phosphatase 88 U/L (40-110); Bilirubin, Direct 0.3 mg/dL (0.1-0.3); Bilirubin, Total 0.4 mg/dL (0.2-1.2); Phosphorus 3.6 mg/dL (2.3-4.7)
[2021-01-31] MEDS ORDERED: Dextrose 5% in Water 1,000 ML IV SCH (09:00)
[2021-01-31 11:04] LABS: Iron 29 ug/dL (65-175); Iron Binding Capacity, Total 173 mcg/dL (261-462)
[2021-01-31] MEDS ORDERED: IRON SUCROSE COMPLEX 100 MG/5 ML SLOW IVP SCH (13:30)
[2021-01-31] MEDS ORDERED: Iron, Sodium Ferric Gluconate 125 MG, Admixture Fee 1 EACH in Sodium Chloride 0.9% 100 ML IVPB SCH (14:30)
[2021-01-31] MEDS: Clopidogrel Bisulfate 75 MG TAB PER TUBE SCH (22:05)
[2021-01-31] MEDS: Atorvastatin Calcium 40 MG TAB PO SCH (22:05)
[2021-01-31] MEDS: Lantus 1000 UNITS/10 ML VIAL SC SCH (22:05)
[2021-02-01 06:03] LABS: Anion Gap 15 mmol/L (10-20); BUN (Urea Nitrogen) 79 mg/dL (8.4-25.7); Calc. Creatinine Clearance 32 mL/min (70-130); Calcium 9.5 mg/dL (7.8-10.44); Carbon Dioxide 25 mmol/L (23-31); Chloride 113 mmol/L (98-107); Glucose 163 mg/dL (83-110); Potassium 4.7 mmol/L (3.5-5.1); Sodium 148 mmol/L (136-145)
[2021-02-01 06:20] LABS: #Eosinphils 0.2 10x3/uL (0.0-0.5); #Monocytes 0.6 10x3/uL (0.0-1.1); #Neutrophils 8.9 10x3/uL (1.5-8.4); %Basophils 0.2 % (0.0-2.0); %Eosinophils 1.3 % (0.0-6.0); %Lymphocytes 12.3 % (18.0-47.0); %Monocytes 5.4 % (0.0-10.0); %Neutrophils 80.2 % (40.0-75.0); Hemoglobin 8.3 g/dL (13.5-17.5); Mean Corpuscular HGB CONC 30.1 g/dL (32.0-36.0); Mean Corpuscular Hemoglobin 28.8 pg (27.0-33.0); Mean Corpuscular Volume 95.8 fl (81.2-95.1); Mean Platelet Volume 10.9 fl (7.4-10.4); Platelet Count 269 10x3/uL (150-450); RBC Distribution Width 17.2 % (11.5-14.5); Red Blood Cell (RBC) Count 2.88 10x6/uL (4.32-5.72); White Blood Cell (WBC) Count 11.1 10x3/uL (3.5-10.5)
[2021-02-01] MEDS: Empagliflozin 10 MG TAB PO SCH (07:13)
[2021-02-01] MEDS: Aspirin 81 mg Enteric Coated Tablet PO SCH (07:14)
[2021-02-01] MEDS: Enoxaparin Sodium 30 MG/0.3 ML SYRINGE SC SCH (07:14)
[2021-02-01] MEDS: Docusate Sodium 100 MG/10 ML UDCUP PO SCH (07:14)
[2021-02-01 11:37] VITALS: BP 120/57; TEMP 97.7
== END 2021-02-01 19:50 | disposition home health service (06) | DRG 246 ==
LOC: CSHERS 11:09 → CSHTELE 15:44 → CSHIMCU 01-18 11:12 → CSHTELE 01-29 21:24
PROVIDERS: ADMIT Specialist; ATTEND Internal Medicine
PROC: 027034Z Dilation of Coronary Artery, One Artery with Drug-eluting Intraluminal Device, Percutaneous Approach (ICD-10-PCS; principal; 2021-01-15)
PROC: 4A023N7 Measurement of Cardiac Sampling and Pressure, Left Heart, Percutaneous Approach (ICD-10-PCS; 2021-01-15)
PROC: B2111ZZ Fluoroscopy of Multiple Coronary Arteries using Low Osmolar Contrast (ICD-10-PCS; 2021-01-15)
PROC: B2151ZZ Fluoroscopy of Left Heart using Low Osmolar Contrast (ICD-10-PCS; 2021-01-15)
PROC: B241ZZ3 Ultrasonography of Multiple Coronary Arteries, Intravascular (ICD-10-PCS; 2021-01-15)
PROC: 5A1955Z Respiratory Ventilation, Greater than 96 Consecutive Hours (ICD-10-PCS; 2021-01-16)
PROC: 3E033XZ Introduction of Vasopressor into Peripheral Vein, Percutaneous Approach (ICD-10-PCS; 2021-01-20)
DX: I21.4 Non-ST elevation (NSTEMI) myocardial infarction (principal); I50.43 Acute on chronic combined systolic (congestive) and diastolic (congestive) heart failure; J96.01 Acute respiratory failure with hypoxia; A41.9 Sepsis, unspecified organism; Z66 Do not resuscitate; J18.9 Pneumonia, unspecified organism; G93.41 Metabolic encephalopathy; R65.21 Severe sepsis with septic shock; R57.0 Cardiogenic shock; I13.0 Hypertensive heart and chronic kidney disease with heart failure and stage 1 through stage 4 chronic kidney disease, or unspecified chronic kidney disease; L97.929 Non-pressure chronic ulcer of unspecified part of left lower leg with unspecified severity; L97.919 Non-pressure chronic ulcer of unspecified part of right lower leg with unspecified severity; N39.0 Urinary tract infection, site not specified; N17.9 Acute kidney failure, unspecified; E87.2 Acidosis; E87.0 Hyperosmolality and hypernatremia; E87.1 Hypo-osmolality and hyponatremia; Z20.822 Contact with and (suspected) exposure to COVID-19; E11.22 Type 2 diabetes mellitus with diabetic chronic kidney disease; E78.5 Hyperlipidemia, unspecified; I25.5 Ischemic cardiomyopathy; I25.10 Atherosclerotic heart disease of native coronary artery without angina pectoris; D50.9 Iron deficiency anemia, unspecified; D63.1 Anemia in chronic kidney disease; E66.9 Obesity, unspecified; N18.30 Chronic kidney disease, stage 3 unspecified; Z96.651 Presence of right artificial knee joint; R00.1 Bradycardia, unspecified; I44.0 Atrioventricular block, first degree; E87.6 Hypokalemia; E88.09 Other disorders of plasma-protein metabolism, not elsewhere classified; E87.5 Hyperkalemia; Z95.1 Presence of aortocoronary bypass graft; Z79.82 Long term (current) use of aspirin; Z79.4 Long term (current) use of insulin; Z95.5 Presence of coronary angioplasty implant and graft; Z74.01 Bed confinement status; Z68.32 Body mass index [BMI] 32.0-32.9, adult
CPT/HCPCS: 36215; 36225; 36415; 36416; 36600; 70450; 71045; 71250; 74176; 75710; 76770; 80048; 80053; 80061; 80076; 80202; 81001; 82140; 82553; 82565; 82728; 82805; 83036; 83540; 83550; 83605; 83735; 83880; 84100; 84145; 84443; 84484; 85025; 85379; 85610; 85730; 86140; 86850; 86900; 86901; 87040; 87070; 87086; 87205; 87449; 92928; 92978; 93005; 93010; 93306; 93459; 94002; 94003; 94640; 94760; C1753; C1874; C1887; C9113; C9600; J0153; J0171; J0692; J1250; J1644; J1650; J1720; J1815; J1940; J1956; J2185; J2250; J2704; J2916; J2920; J3010; J3370; J3480; J3490; J7070; J7620; Q5105; U0002; U0003; U0005